=== PATIENT | female | born 1960 | race Caucasian/White ===

== ENCOUNTER 2017-06-22 02:54 | Inpatient (IN) | payer SELFPAY ==
[2017-06-22] MEDS ORDERED: Nitroglycerin 2% Ointment 1 INCH/1 GM Packet ONE (03:22)
[2017-06-22 03:38] LABS: #Eosinphils 0.1 thou/uL (0.0-0.7); #Lymphocytes 2.9 thou/uL (1.20-3.40); #Monocytes 0.9 thou/uL (0.11-0.59); #Neutrophils 6.1 thou/uL (1.40-6.50); %Basophils 0.4 % (0.0-1.0); %Eosinophils 0.7 % (0.0-10.0); %Lymphocytes 28.6 % (21.0-51.0); %Monocytes 9.1 % (0.0-10.0); Hematocrit 47.6 % (36.0-47.0); Mean Platelet Volume 7.3 fL (7.4-10.4); Red Blood Cell (RBC) Count 4.82 mill/uL (4.20-5.40)
[2017-06-22 03:45] LABS: Prothrombin Time 12.3 SEC (12.0-14.7)
[2017-06-22 04:01] LABS: Troponin I Less than 0.010 ng/mL (< 0.028)
[2017-06-22 04:06] LABS: ALT (SGPT) 47 U/L (8-55); AST (SGOT) 42 U/L (5-34); Alkaline Phosphatase 203 U/L (40-150); Anion Gap 21 mmol/L (10-20); BUN (Urea Nitrogen) 19 mg/dL (9.8-20.1); Bilirubin, Total 1.1 mg/dL (0.2-1.2); Calc. Creatinine Clearance 0 mL/min (70-130); Calcium 10.9 mg/dL (7.8-10.44); Carbon Dioxide 22 mmol/L (22-29); Chloride 100 mmol/L (98-107); Estimated GFR-MDRD 73; Globulin 4.4 g/dL (2.4-3.5); Magnesium 2.4 mg/dL (1.6-2.6); Protein, Total 9.1 g/dL (6.0-8.3)
[2017-06-22] MEDS ORDERED: Ondansetron HCl/PF 4 MG/2 ML Vial ONE (04:52)
[2017-06-22] MEDS ORDERED: Heparin 10,000 UNITS/ 10 ML VIAL SLOW IVP SCH ×2 (05:00→05:30)
[2017-06-22] MEDS ORDERED: Heparin 25,000 units/D5W 500 ML IV SCH (05:00)
[2017-06-22] MEDS ORDERED: Nitroglycerin 0.4 MG TAB (25 Tab Bottle) SL PRN (05:26)
[2017-06-22] MEDS ORDERED: Acetaminophen 650 MG Suppository PR PRN (05:26)
[2017-06-22] MEDS ORDERED: Bisacodyl 5 MG TAB PO PRN (05:26)
[2017-06-22] MEDS ORDERED: Acetaminophen 325 MG TAB PO PRN (05:26)
[2017-06-22] MEDS ORDERED: Morphine 4 MG/ML VIAL SLOW IVP PRN (05:26)
[2017-06-22] MEDS ORDERED: Ondansetron HCl/PF 4 MG/2 ML Vial IVP PRN (05:26)
[2017-06-22] MEDS ORDERED: Heparin 25,000 units/D5W 500 ML IVPB SCH (05:30)
[2017-06-22] MEDS ORDERED: hydrALAZINE 20 MG/ML VIAL SLOW IVP PRN (05:33)
--- NOTE | 2017-06-22 06:31 | HP ---
PRIMARY CARE PHYSICIAN: None. CHIEF COMPLAINT: Chest pain. HISTORY OF PRESENT ILLNESS: Ms. Eric is a pleasant 57-year-old lady who was seen at [facility] on 06/22/2017. She was hospitalized here in 11/2013 for chest pain. At that time, she had a normal nuclear stress test. She reports that over the last week, she has had decreased exercise tolerance, feeling short of breat h with activities that do not usually make her feel short of breath. One week ago, she also reports having some chest pain and she took Tylenol for that. Yesterday morning, she started having nausea and vomiting, and diarrhea. She reports vomiting multip le times. She also reports having multiple nonbloody loose stools. Vomiting and diarrhea resolved a s of yesterday evening. She continues to be nauseous. She also developed chest pain yesterday. She describes it as pain across her chest, tightness like s ensation, 6/10 at its worst, radiating to her jaw, accompanied by nausea, vomiting, and diarrhea. Sh e denies any fevers. She reports abdominal cramps. REVIEW OF SYSTEMS: The following complete review of systems was negative, unless otherwise mentioned in the HPI or below : Constitutional: Weight loss or gain, sense of well-being, ability to conduct usual activities, exerc ise tolerance. Skin/Breast: Rash, itching, changes in hair growth or loss, nail changes, breast lumps, tenderness, swelling, nipple discharge. Eyes: Vision, double vision, tearing, blind spots, pain. ENT/Mouth: Headaches (location, time of onset, duration, precipitating factors), vertigo, lightheade dness, injury. Vision, double vision, tearing, blind spots, pain, nose bleeding, colds, obstruction, discharge, dental difficulties, gingival bleeding, dentures, neck stiffness, pain, tenderness, klaudia s in thyroid or other areas. Cardiovascular: Precordial pain, substernal distress, palpitations, syncope, dyspnea on exertion, or thopnea, nocturnal paroxysmal dyspnea, edema, cyanosis, hypertension, heart murmurs, varicosities, ph lebitis, claudication. Respiratory: Pain, shortness of breath, wheezing, stridor, cough, hemoptysis, fever or night sweats. Gastrointestinal: Poor appetite, dysphagia, indigestion, abdominal pain, heartburn, eructation, naus ea, vomiting, hematemesis, jaundice, constipation, or diarrhea, abnormal stools (santiago-colored, tarry, bloody, greasy, foul smelling), flatulence, hemorrhoids, recent changes in bowel habits. Genitourinary: Urgency, frequency, dysuria, nocturia, hematuria, polyuria, oliguria, unusual (or tank nge in) color of urine, stones, hesitancy, change in size of stream, dribbling, acute retention or in continence, libido, potency. Musculoskeletal: Pain, swelling, redness or heat of muscles or joints, limitation, of motion, muscul ar weakness, atrophy, cramps. Neurologic/Psychiatric: Convulsions, paralyses, tremor, incoordination, parasthesias, difficulties w ith memory of speech, sensory or motor disturbances, or muscular coordination (ataxia, tremor), emoti onal problems, anxiety, depression, previous psychiatric care, unusual perceptions, hallucinations. Allergy/Immunologic: Skin rash, anemia, bleeding tendency, polydipsia, polyuria, intolerance to heat or cold. PAST MEDICAL HISTORY: Significant for chronic back pain, nephrolithiasis, right leg deep vein thromb osis. She also reports that she was recently diagnosed with hypertension and was started on an antih ypertensive medication. PAST SURGICAL HISTORY: Significant for cholecystectomy, tubal ligation, and back surgery x2. PSYCHIATRIC HISTORY: Significant for depression. SOCIAL HISTORY: The patient reports that she used to smoke 1 pack of cigarettes a day, but she has n ow decreased to half a pack of cigarettes a day. She reports rare alcohol use. She reports occasion al marijuana use. She denies any cocaine use. FAMILY HISTORY: Significant for myocardial infarction and other heart diseases in several family mem bers. ALLERGIES: No known drug allergies. CURRENT MEDICATIONS: She appears to be taking clonidine 0.1 mg 2 times a day. This needs to be clar ified. PHYSICAL EXAMINATION: GENERAL: Ms. Eric is awake and alert, not in acute distress. VITAL SIGNS: Blood pressure is 141/84. Pulse is 102. She is breathing at rate of 20 and saturating 97% on room air. She is afebrile. EYES: No scleral icterus. No conjunctival pallor. ENT: Dry mucosal membranes, no oropharyngeal erythema or exudates. NECK: Supple, nontender, normal range of movement. Trachea is midline. RESPIRATORY: Accessory muscles of breathing are not active. Chest wall movements are symmetric bila terally. LUNGS: Clear to auscultation without wheeze, rhonchi, or crepitations. ABDOMEN: Soft, nontender, bowel sounds heard, no hepatomegaly, no splenomegaly. CARDIOVASCULAR: S1 and S2 are heard, tachycardic and regular. EXTREMITIES: Peripheral pulses palpable. No carotid bruit, no pericardial rub. MUSCULOSKELETAL: Power is 5/5 in all 4 extremities. Normal range of movement at all major extremity joints. NEUROLOGIC: Cranial nerves II-XII are intact, deep tendon reflexes 2+. SKIN: No rashes or subcutaneous nodules. LYMPHATIC: No cervical lymphadenopathy. PSYCHIATRIC: Normal mood, normal affect, patient is oriented to person, place, and time. DATABASE: Ms. Eric's labs and investigations were reviewed. I reviewed her electrocardiogram, which shows sinus tachycardia, ST depressions in inferior and anterior lateral leads. I also reviewed her chest x-ray, which does not show any pulmonary infiltrates. Laboratory investigations show normal w maribell count, elevated hemoglobin of 16.1, normal platelet count, normal sodium, normal potassium, norm al creatinine, elevated calcium level of 10.9, normal magnesium, elevated AST of 42, elevated alkalin e phosphatase of 203, normal troponin I and normal TSH. ASSESSMENT AND PLAN: Ms. Eric is a pleasant 57-year-old lady who was seen at [facility] on 06/21/2017. Her problem list includes: 1. Chest pain: Her presentation is concerning for unstable angina. However, given her history of d eep vein thrombosis as well as her current presentation with sinus tachycardia, we will check D-dimer to rule out pulmonary embolism. 2. Unstable angina: Patient will be admitted to the hospital for telemetry monitoring. Her case wolf s been discussed by the emergency room physician with the industrial hire sales assistant wallpaper consultant. Patient has been sta rted on heparin drip, which I will continue. The patient will also be continued on aspirin. We will await Cardiology service opinion and recommendations. 3. Nausea, vomiting, and diarrhea. Vomiting and diarrhea appear to have resolved. We will start he r on p.r.n. Zofran. She is clinically dehydrated, will provide intravenous hydration. 4. Hypertension: We will resume home antihypertensives once clarified. For now, we will monitor vi loyda signs. We will start her on p.r.n. IV hydralazine. 5. Tobacco abuse: Patient has been counseled regarding tobacco cessation. We will start her on srinivas otine replacement therapy. 6. Abnormal liver function tests: Right upper quadrant is nontender. We will recheck her liver pro file. 7. Hypercalcemia: Mild, will recheck to rule out lab error. LEVEL OF RISK: High. LEVEL OF COMPLEXITY: High.
[2017-06-22 06:58] LABS: Hematocrit 39.5 % (36.0-47.0)
[2017-06-22 07:12] LABS: Troponin I Less than 0.010 ng/mL (< 0.028)
[2017-06-22] MEDS: Sodium Chloride 0.9% 1,000 ML IV SCH ×3 (08:09→21:19)
[2017-06-22] MEDS: Nicotine 14 MG PATCH TD SCH (08:19)
--- NOTE | 2017-06-22 09:09 | RAD ---
PORTABLE AP CHEST XRAY: DATE: 06/22/17. History Chest pain with nausea, vomiting, and diarrhea. COMPARISON: 12/21/13. FINDINGS: Cardiac silhouette and pulmonary vasculature are within normal limits. The lungs remain clear. Dege nerative changes are present in the spine. There are vascular calcifications present in the thoracic aorta. There has been no interval change from the prior study. IMPRESSION: No acute cardiopulmonary process. POS: [facility]
--- NOTE | 2017-06-22 09:29 | PDOC.PN ---
- Subjective Encounter Start Date: 06/22/17 Encounter Start Time: 09:27 Ms. Eric was seen in follow-up of chest pain. She says she feels better today. She still has some soreness in her chest, but it primarily when she goes to sit up, or when she coughs deep. She admits to having some dyspnea on exertion in the past few weeks. - Objective MAR Reviewed: Yes Vital Signs & Weight: Vital Signs (12 hours) Temp Pulse Resp BP Pulse Ox 06/22/17 07:40 99.1 F 106 H 18 130/90 100 Result Diagrams: 06/22/17 06:40 06/22/17 03:25 Phys Exam - Physical Examination HEENT: PERRLA Respiratory: no wheezing, no rales, no rhonchi, clear to auscultation bilateral Cardiovascular: RRR, no significant murmur Gastrointestinal: soft, non-tender, positive bowel sounds Musculoskeletal: no edema Dx/Plan (1) Chest pain Code(s): R07.9 - CHEST PAIN, UNSPECIFIED Status: Acute (2) Hypertension Code(s): I10 - ESSENTIAL (PRIMARY) HYPERTENSION Status: Acute (3) Tobacco abuse Code(s): Z72.0 - TOBACCO USE Status: Acute - Plan * Chest pain- patient's D-Dimer was elevated, and her symptoms were atypical for angina- discussed with Dr. Cadena- will proceed with CTA of chest prior to any other work-up * HTN - blood pressure is stable .
[2017-06-22 10:16] LABS: Troponin I Less than 0.010 ng/mL (< 0.028)
--- NOTE | 2017-06-22 13:29 | CT ---
CT ANGIOGRAM THORAX WITH IV CONTRAST AND 3D RECONSTRUCTIONS: DATE: 06/22/17. HISTORY: Chest pain and dyspnea. FINDINGS: There are no filling defects seen in the pulmonary arteries to suggest a pulmonary embolus. The thor acic aorta is normal in caliber without evidence of an aortic dissection. Mild vascular calcificatio ns are seen in the thoracic aorta as well as involving the coronary arteries. Mild emphysematous changes are seen in the upper lobes. The lungs are otherwise clear. There is a mildly prominent soft tissue density in the right infrahilar region which may represent mi ldly prominent lymph node. This measures 10 mm in short axis dimension. Postcholecystectomy changes are noted. There are degenerative changes in the spine. IMPRESSION: No CT evidence of a pulmonary embolus. POS: [facility]
[2017-06-22] MEDS: Aspirin 325 mg Enteric Coated Tablet PO SCH (13:45)
[2017-06-22] MEDS ORDERED: ISOVUE-370 76%-LOCM 1 ML ONE (17:09)
--- NOTE | 2017-06-22 18:12 | CON ---
DATE OF CONSULTATION: 06/22/2017 REASON FOR CONSULTATION: Chest pain. HISTORY OF PRESENT ILLNESS: Mrs. Eric is a very pleasant 57-year-old white female who comes to the [facility] for nausea, vomiting, and diarrhea. She has been having severe nausea, lots of vomiting for the last 2 days as well as diarrhea. It all started the night on Thanksgiving after she had her meal . She says she has been unable to keep anything down. When she came in, she was asked if she had ch est pain, she has noticed a little pain on the right side of her chest. She feels that it is a muscl e she pulled as she was dry heaving so much all day long. An EKG was done and it looked like she baljinder ht have ischemia, so she was admitted with diagnosis of unstable angina. Her symptoms do not sound c ardiac at all. She states that she is hungry now. She has not had any more nausea since being given some nausea medicine and she would like to see if she can eat. CT of the chest showed coronary calc ification, she probably does have some level of coronary disease, but currently she is denying any sy mptoms that would concern me for angina. PAST MEDICAL HISTORY: 1. Chronic low back pain. 2. Nephrolithiasis. 3. Right deep vein thrombosis. 4. Hypertension. PAST SURGICAL HISTORY: 1. Cholecystectomy. 2. Tubal ligation. 3. Back surgery twice. SOCIAL HISTORY: Smokes a pack a day, but has decreased to half pack a day in the last few months. R are alcohol use. Occasional marijuana use. No cocaine. FAMILY HISTORY: DC and heart disease in several family members. OUTPATIENT MEDICATIONS: Include: 1. Clonidine 0.1 mg twice a day. 2. Tramadol 40 mg q.4 hours. p.r.n. pain. 3. Aspirin in the form of BC powder 1 packet daily. ALLERGIES: No known drug allergies. REVIEW OF SYSTEMS: Twelve point review of system was done, it was all negative unless stated in the history of present illness. PHYSICAL EXAMINATION: VITAL SIGNS: Temperature 98.9, pulse 90, respiratory rate 17, satting 98% on room air, blood pressur e 125/70. GENERAL: Awake, alert and oriented x3, in no distress. HEENT: Normocephalic, atraumatic. NECK: Supple. LUNGS: Clear. CARDIOVASCULAR: S1, S2, no S3, S4, no murmurs or rubs. ABDOMEN: Soft, positive bowel sounds. EXTREMITIES: No edema. SKIN: Warm and dry. LABORATORY WORK: Reviewed. White count of 10, hemoglobin of 16 down to 13 after IV fluids, hematocr it 47, platelet count 361. Coags were reviewed. Chemistries were reviewed. Normal BUN and creatini ne, normal electrolytes, glucose of 107, calcium 10.9, AST 42, alkaline phosphatase was 203, troponin is undetectable x3 with a normal CK-MB. TSH was normal. Albumin was 4.7. EKG was reviewed, diffuse ST depressions while she is tachycardic. Chest x-ray was unremarkable. CT of the chest showed coronary atherosclerosis with mild vascular calcifications in thoracic aorta a s well. Emphysematous changes in the upper lobes, clear lungs otherwise, no pulmonary embolus. ASSESSMENT AND PLAN: 1. Acute gastroenteritis. 2. Chest pain, most likely musculoskeletal from her dry heaving and nausea and vomiting for the last 2 days. 3. Abnormal EKG: Concerning for ischemia. Given her changes on EKG in the setting of stress, we wi ll get a stress test to make sure this is not an issue with her heart. Thank you for letting us participate in the care of your patient. We will follow.
[2017-06-22] MEDS ORDERED: FLU VACC QS2017-18 36 mo. & older 0.5 ML SYRINGE IM ONE (21:00)
[2017-06-23] MEDS: Nicotine 14 MG PATCH TD SCH ×3 (05:52→12:37)
[2017-06-23 06:04] LABS: #Basophils 0.1 thou/uL (0.0-0.2); #Eosinphils 0.1 thou/uL (0.0-0.7); #Lymphocytes 1.7 thou/uL (1.20-3.40); #Monocytes 0.5 thou/uL (0.11-0.59); #Neutrophils 2.8 thou/uL (1.40-6.50); %Basophils 1.1 % (0.0-1.0); %Lymphocytes 32.9 % (21.0-51.0); %Monocytes 9.7 % (0.0-10.0); Hematocrit 34.8 % (36.0-47.0); Red Blood Cell (RBC) Count 3.53 mill/uL (4.20-5.40); White Blood Cell (WBC) Count 5.1 thou/uL (4.8-10.8)
[2017-06-23] MEDS: Sodium Chloride 0.9% 1,000 ML IV SCH (06:21)
[2017-06-23 06:32] LABS: ALT (SGPT) 31 U/L (8-55); AST (SGOT) 26 U/L (5-34); Alkaline Phosphatase 122 U/L (40-150); Bilirubin, Direct 0.3 mg/dL (0.1-0.3); Bilirubin, Total 0.7 mg/dL (0.2-1.2); Protein, Total 5.7 g/dL (6.0-8.3)
[2017-06-23 06:33] LABS: Anion Gap 9 mmol/L (10-20); BUN (Urea Nitrogen) 12 mg/dL (9.8-20.1); Calc. Creatinine Clearance 0 mL/min (70-130); Calcium 8.6 mg/dL (7.8-10.44); Carbon Dioxide 28 mmol/L (22-29); Chloride 106 mmol/L (98-107); Cholesterol 133 mg/dl (< 200 Desired); Estimated GFR-MDRD Greater than 90; LDL Cholesterol, Calculated 81 mg/dL
[2017-06-23] MEDS ORDERED: Potassium Chloride 20 MEQ TAB PO SCH ×4 (07:00→17:00)
[2017-06-23] MEDS ORDERED: NS 0.9% w/ 20 MEQ KCL 1,000 ML IV SCH (07:00)
[2017-06-23] MEDS: Aspirin 325 mg Enteric Coated Tablet PO SCH (12:35)
[2017-06-23 13:08] VITALS: BP 172/81; TEMP 98
--- NOTE | 2017-06-23 14:02 | NM ---
NUCLEAR MEDICINE MYOCARDIAL PERFUSION SCAN: DATE: 06/23/17. COMPARISON: 12/22/13. HISTORY: Chest pain. TECHNIQUE: SPECT imaging of the left ventricular myocardium obtained during rest and stress following the intrav enous administration of 28.5 and 10.3 mCi technetium 99m labeled sestamibi. FINDINGS: No fixed or reversible defect is noted. Left ventricular wall motion appears normal. TID is 1.17. EDV is 111 mL and ESV is 46 mL with a left ventricular ejection fraction of 59%. IMPRESSION: 1. No fixed or reversible defect. 2. Left ventricular wall motion appears normal. 3. Left ventricular ejection fraction 59%. POS: [facility]
[2017-06-23] MEDS ORDERED: Regadenoson 0.4 MG/5 ML SYRINGE ONE (14:42)
--- NOTE | 2017-06-23 15:30 | PDOC.CTH ---
Cardiology Progress Note - Subjective She is doing well. No more diarrhea or vomiting. No nausea. Her stress test is negative and echo unremarkable. No chest pain, tightness, pressure, SOB. - Objective Vital Signs Temp Pulse Resp BP Pulse Ox 06/23/17 12:00 98 F 76 16 172/81 H 97 06/23/17 07:41 97.2 F L 71 19 99 06/23/17 07:40 97.2 F L 71 19 137/71 99 06/23/17 04:00 97.9 F 70 22 H 154/72 H 98 Weight 5.333 oz 06/22/17 06/23/17 06/24/17 06:59 06:59 06:59 Intake Total 3358 240 Output Total 700 Balance 2658 240 - Physical Examination General/Neuro: alert & oriented x3, NAD Neck: no JVD present Lungs: CTA, unlabored respirations Heart: RRR Abdomen: NT/ND Extremities: other: (no edema.) - Telemetry Telemetry Rhythm: NSR - Labs Result Diagrams: 06/23/17 05:14 06/23/17 14:55 Troponin/CKMB CK-MB (CK-2) 1.3 ng/mL (0-6.6) 06/22/17 03:25 Troponin I Less than 0.010 ng/mL (< 0.028) 06/22/17 09:31 - Assessment/Plan 1. Acute gastroenteritis, resolved. 2. Chest martinez, right sided, atypical normal stress test. 3. Tobacco abuse, counselled on cessation. PLAN: - May d/c home from [facility].
--- NOTE | 2017-06-23 16:21 | DIS ---
DATE OF ADMISSION: 06/22/2017 DATE OF DISCHARGE: 06/23/2017 DISCHARGE DISPOSITION: Home. FOLLOW-UP: 1. Follow up with primary care physician, Dr. Boyle in [place] in 1 week. 2. Base met in 2 days is recommended. Primary care physician to follow. ALLERGIES: No known drug allergies. DISCHARGE MEDICATIONS: Tramadol as needed, potassium chloride 20 mEq twice a day. INPATIENT CONSULTANTS: Cardiology, Dr. Cadena. BRIEF HOSPITAL COURSE: Patient is a 57-year-old female with ongoing tobacco abuse, chronic low back pain and hypertension, currently on no medications, presented to the emergency room with chest discom fort. Please refer to the history and physical dated 06/22/2017 for further details. The patient was admitted to the hospital with a diagnosis of chest discomfort, rule out acute coronar y syndrome. Troponins were normal. Due to elevated D-dimer at 3.3, she underwent a CT angiogram of the chest that was negative for pulmonary embolism. Echocardiogram showed left ventricular ejection fraction of 55%-60% with grade 1/3 diastolic dysfunction. She underwent a Cardiolite stress test per Cardiology recommendation that was negative for reversible ischemia. Ejection fraction was 59%. Filemon prasad recently had acute gastroenteritis that has more or less resolved. Her stool is well formed now. Her potassium earlier today was 2.9. It was 4.1 yesterday. She received potassium chloride this mor josefina. Repeat potassium is 3.3. She requested to get discharged. She agrees to follow with the [facility] with repeat potassium in 2 days. Lifestyle modification including tobacco cessation was ext ensively emphasized. FINAL DIAGNOSES: 1. Chest discomfort, acute coronary syndrome ruled out. 2. Negative Cardiolite stress test. 3. Acute gastroenteritis, more or less resolved. 4. Hypokalemia with potassium 2.9, replaced. 5. Hypertension. Her blood pressure on the day of discharge is 137/71. She was advised to monitor her blood pressure on a daily basis. 6. Ongoing tobacco abuse. The patient was counseled extensively. 7. Chronic low back pain. 8. Mild hypoalbuminemia. 9. Dehydration on admission secondary to acute gastroenteritis. Plan of care was discussed with the patient in detail. She stated understanding. Total time coordinating the discharge of this patient including counseling was 37 minutes.
--- NOTE | 2017-06-24 04:30 | STRESS ---
Acquisition Time: 2017-06-23 09:31:10 Total Exercise Time: 00:01:00 Test Indications: CHEST PAIN Medications: Protocol: LEXISCAN Max HR: 129 BPM 79% of Pred: 162 BPM Max BP: 190/098 mmHG Max Work Load: 1.0 METS RESTING ECG: NORMAL SINUS RHYTHM AT 75 BPM WITH NON-SPECIFIC ST SEGMENT CHANGES SYMPTOMS: NONE NORMAL BP RESPONSE ECTOPY: RARE PAC AND PVC ECG STRESS: 0.5-1.[address] DEPRESSION INTERPRETATION: INDETERMINATE ECG/AWAIT NUCLEAR IMAGES FOR DEFINITIVE DIAGNOSIS Confirmed by MARCELLE SULLIVAN M.D. ([id number]) on 06/24/2017 4:29:40 AM Referred By: MD Clotilde SULLIVAN Confirmed By:MARCELLE SULLIVAN M.D.
== END 2017-06-23 17:12 | disposition home or self-care (01) | DRG 313 ==
LOC: ERS 02:54 → 2NO 04:47
PROVIDERS: ADMIT Internal Medicine; ATTEND Internal Medicine
DX: R07.89 Other chest pain (principal); I25.10 Atherosclerotic heart disease of native coronary artery without angina pectoris; E88.09 Other disorders of plasma-protein metabolism, not elsewhere classified; I10 Essential (primary) hypertension; F17.210 Nicotine dependence, cigarettes, uncomplicated; K52.9 Noninfective gastroenteritis and colitis, unspecified; M54.5 Low back pain; R79.1 Abnormal coagulation profile; E87.6 Hypokalemia; E86.0 Dehydration; R68.84 Jaw pain; F32.9 Major depressive disorder, single episode, unspecified; Z86.718 Personal history of other venous thrombosis and embolism; Z23 Encounter for immunization
CPT/HCPCS: 36415; 71010; 71275; 78452; 80048; 80053; 80061; 80076; 82553; 83735; 84443; 84484; 85025; 85379; 85610; 85730; 90471; 90682; 90732; 93005; 93010; 93017; 93306; 96365; 96375; 99406; A4216; A9500; G0008; G0009; J1644; J2270; J2405; J2785; Q2036

== ENCOUNTER 2017-12-25 23:10 | Observation (INO) | payer SELFPAY ==
--- NOTE | 2017-12-25 23:45 | RAD ---
SINGLE VIEW OF THE CHEST: 12/25/17 COMPARISON: 06/22/17 HISTORY: Chest tightness since yesterday and facial tingling. FINDINGS: Single view of the chest shows a normal sized cardiomediastinal silhouette. There is no evidence of c onsolidation, mass, or pleural effusion. Degenerative changes are seen in the spine. IMPRESSION: No evidence of acute cardiopulmonary disease. POS: [facility]
[2017-12-26 00:08] LABS: #Eosinphils 0.2 thou/uL (0.0-0.7); #Lymphocytes 2.5 thou/uL (1.20-3.40); #Monocytes 0.7 thou/uL (0.11-0.59); #Neutrophils 3.7 thou/uL (1.40-6.50); %Basophils 0.6 % (0.0-1.0); %Eosinophils 2.2 % (0.0-10.0); %Lymphocytes 34.9 % (21.0-51.0); %Monocytes 9.8 % (0.0-10.0); %Neutrophils 52.6 % (42.0-75.0); Hemoglobin 12.6 g/dL (12.0-16.0); Mean Corpuscular HGB CONC 33.8 g/dL (32.0-36.0); Mean Corpuscular Hemoglobin 33.1 pg (27.0-31.0); Mean Corpuscular Volume 98.2 fl (81.0-99.0); Mean Platelet Volume 6.7 fL (7.4-10.4); Platelet Count 296 thou/uL (130-400); RBC Distribution Width 12.1 % (11.5-14.5); White Blood Cell (WBC) Count 7.1 thou/uL (4.8-10.8)
[2017-12-26 00:38] LABS: ALT (SGPT) 20 U/L (8-55); AST (SGOT) 21 U/L (5-34); Albumin 3.9 g/dL (3.5-5.0); Alkaline Phosphatase 107 U/L (40-150); Anion Gap 11 mmol/L (10-20); BUN (Urea Nitrogen) 23 mg/dL (9.8-20.1); Bilirubin, Total 0.3 mg/dL (0.2-1.2); CK (CPK) 61 U/L (29-168); Calc. Creatinine Clearance 0 mL/min (70-130); Calcium 9.6 mg/dL (7.8-10.44); Carbon Dioxide 32 mmol/L (22-29); Chloride 105 mmol/L (98-107); Estimated GFR-MDRD 81; Globulin 2.8 g/dL (2.4-3.5); Glucose 94 mg/dL (70-105); Protein, Total 6.7 g/dL (6.0-8.3); Sodium 145 mmol/L (136-145)
[2017-12-26 00:40] LABS: CKMB 0.6 ng/mL (0-6.6); Troponin I Less than 0.010 ng/mL (< 0.028)
[2017-12-26] MEDS ORDERED: Nitroglycerin 0.4 MG TAB (25 Tab Bottle) ONE (00:41)
[2017-12-26] MEDS ORDERED: Acetaminophen 500 MG TAB ONE (01:09)
[2017-12-26] MEDS ORDERED: Potassium Chloride 20 MEQ TAB ONE (03:01)
[2017-12-26 03:08] LABS: Amphetamine Not Detected (NotDetected); Barbiturates Screen Not Detected (NotDetected); Benzodiazepine Screen Detected (NotDetected); Cocaine Metabolite Screen Not Detected (NotDetected); Medtox Control Line Valid? VALID (VALID); Medtox Reader # READER 1; Methadone Not Detected (NotDetected); Methamphetamine Not Detected (NotDetected); Opiate Screen Not Detected (NotDetected); Oxycodone Screen Not Detected (NotDetected); Phencyclidine (PCP) Not Detected (NotDetected); THC/Cannabinoid Screen Detected (NotDetected); Tricyclic Screen Not Detected (NotDetected)
[2017-12-26 03:27] LABS: Troponin I Less than 0.010 ng/mL (< 0.028)
[2017-12-26] MEDS ORDERED: Acetaminophen 325 MG TAB PO PRN (04:10)
[2017-12-26] MEDS ORDERED: Acetaminophen 650 MG Suppository PR PRN (04:10)
[2017-12-26] MEDS ORDERED: Bisacodyl 5 MG TAB PO PRN (04:10)
[2017-12-26] MEDS ORDERED: Nitroglycerin 0.4 MG TAB (25 Tab Bottle) PO PRN (04:10)
--- NOTE | 2017-12-26 05:23 | HP ---
PRIMARY CARE PROVIDER: Jabier Gonzalez. CHIEF COMPLAINT: Chest pain. HISTORY OF PRESENT ILLNESS: Ms. Eric is a pleasant 57-year-old lady who was seen at [facility] on 12/26/2017. She was hospitalized at this facility in 05/2017 for chest pain. She had a normal stress test during that hospitalization. She reports that 2 weeks ago she thought she had a kidney infection. She took some [id number] "kidney pills." Next day, she presented to the emergency room in [place] and was diagnosed with plecory isy. She was visiting [place] at that time. Since then, she reports having leg cramps, leg paresthes ias, whole body spasms, and insomnia. She reports poor appetite. Yesterday, she developed chest pre ssure. She describes it as retrosternal, radiating to the jaw, no known aggravating or relieving fac tors, on and off, accompanied by shortness of breath, but not by lightheadedness. She came to the em ergency room because of ongoing chest discomfort. By the time I saw her, she reported that the chest discomfort had resolved. REVIEW OF SYSTEMS: All other systems reviewed and found to be negative. PAST MEDICAL HISTORY: Chronic back pain, nephrolithiasis, right leg deep vein thrombosis, and hypert ension. PAST SURGICAL HISTORY: Cholecystectomy, tubal ligation, and back surgery x2. PSYCHIATRIC HISTORY: Depression. SOCIAL HISTORY: The patient reports smoking 1 pack of cigarettes a day. She denies alcohol use. Sh shanice reports occasional marijuana use. FAMILY HISTORY: Several family members with cardiac disease. ALLERGIES: No known drug allergies. CURRENT MEDICATIONS: Amlodipine 5 mg daily, fluoxetine 20 mg daily, lisinopril 20 mg 2 times a day, and aspirin 81 mg daily. PHYSICAL EXAMINATION: GENERAL: Ms. Eric is awake and alert, not in acute distress. VITAL SIGNS: Blood pressure is 124/75, pulse is 65, she is breathing at rate of 18, and saturating 9 8% on room air. She is afebrile. EYES: No scleral icterus. No conjunctival pallor. ENT: Moist mucosal membranes. No oropharyngeal erythema or exudates. NECK: Supple, nontender, normal range of movement. Trachea is midline. RESPIRATORY: Accessory muscles of breathing are not active. Chest wall movements are symmetric bila terally. LUNGS: Clear to auscultation without wheeze, rhonchi, or crepitations. CARDIOVASCULAR: S1 and S2 are heard, regular. Peripheral pulses palpable. No carotid bruit or david cardial rub. ABDOMEN: Soft, nontender, bowel sounds heard. No hepatomegaly, no splenomegaly. NEUROLOGIC: Cranial nerves II through XII intact. Deep tendon reflexes are 2+. MUSCULOSKELETAL: Power is 5/5 in all 4 extremities. SKIN: No rashes or subcutaneous nodules. LYMPHATIC: No cervical lymphadenopathy. PSYCHIATRIC: Normal mood, normal affect, patient is oriented to person, place, and time. DATABASE: Ms. Eric's labs and investigations were reviewed. I reviewed his electrocardiograms. Zuri ctrocardiogram done at 2315 hours on 12/25, showed a normal sinus rhythm with premature atrial comple xes, nonspecific ST abnormalities. A repeat electrocardiogram done on 12/26/2017 at 0155 hours, do n ot show any premature atrial complexes. The ST abnormalities also appears to have improved. She has normal white count, normal hemoglobin, normal platelet count, D-dimer less than 0.27, decreased pota ssium of 3.0, normal sodium, elevated blood urea nitrogen of 23, normal creatinine, normal liver prof ile, and troponin I that is negative x2. Urine toxicology screen is positive for benzodiazepines and cannabinoids. ASSESSMENT AND PLAN: Ms. Eric is a pleasant 57-year-old lady who was seen at [facility] on 12/26/2017. Her problem list includes: 1. Chest pain: Given her recent negative stress test in 05/2017, we will admit Ms. Eric for telemet ry monitoring and rechecking troponins. We will request Cardiology Service input for opinion and hel p with further management. 2. Hypokalemia: Replace potassium and recheck potassium level. 3. Tobacco abuse: Patient has been counseled regarding tobacco cessation. Start patient on nicotin e replacement therapy. 4. Hypertension: Monitor vital signs, titrate antihypertensives as needed. 5. Cannabinoid use: The patient has been counseled regarding cessation of cannabinoid substances. Many thanks for allowing me to participate in your patient's care. Please feel free to contact me wi th any questions or concerns. LEVEL OF RISK: High. LEVEL OF COMPLEXITY: High.
[2017-12-26] MEDS ORDERED: Nicotine 21 MG PATCH TD SCH (06:00)
[2017-12-26 06:13] LABS: Troponin I Less than 0.010 ng/mL (< 0.028)
[2017-12-26] MEDS ORDERED: Enoxaparin Sodium 40 MG/0.4 ML SYRINGE SC SCH (09:00)
--- NOTE | 2017-12-26 11:56 | CON ---
DATE OF CONSULTATION: 12/26/2017 HISTORY OF PRESENT ILLNESS: The patient is a 57-year-old woman who presents with recurrent chest discomfort. The patient has a history of atypical chest pain. She was seen in 05/2017 with chest pain. She underwent a Cardiolite stress that revealed no evidence of ischemia. The patient was in her usual state of health when 3 days ago she developed right-sided chest discomfort. This radiated to the middle of her chest. This was a continuous discomfort. She came to the emergency room when she felt some radiation into her jaw that lasted just a few seconds. This subsequently resolved. The patient states she continues to feel discomfort. The discomfort is worse with movement. The patient has multiple cardiac risk factors including tobacco abuse, hypertension , and a strong family history of coronary artery disease. PAST MEDICAL HISTORY: 1. Hypertension. 2. Depression. 3. History of deep venous thrombosis. PAST SURGICAL HISTORY: Cholecystectomy, tubal ligation, back surgery. SOCIAL HISTORY: Long history of tobacco abuse. FAMILY HISTORY: Very strong family history of heart disease. ALLERGIES: None. MEDICATIONS ON ADMISSION: Aspirin 81 daily, lisinopril 20 b.i.d., Prozac 20 q.a.m., amlodipine 5 daily. PHYSICAL EXAMINATION: GENERAL: Middle-aged woman in no acute distress. VITAL SIGNS: Blood pressure of 134/63. NECK: No jugular distention, no carotid bruits. LUNGS: Clear to auscultation. HEART: Regular rate and rhythm, normal S1, S2. ABDOMEN: Nondistended. EXTREMITIES: No edema. SKIN: Warm and dry. NEUROLOGIC: Nonfocal. VASCULAR: Radial pulses 2+. LABORATORY: Sodium 145, potassium 3.0, chloride 105, bicarbonate 32, BUN 23, creatinine is 0.74, troponin less than 0.01. White blood cell count 7.1, hemoglobin 12.6, hematocrit 37.3, platelets are 296. D-dimer was less than 0.27. EKG revealed normal sinus rhythm with a normal ECG. IMPRESSION: 1. Chest pain, atypical. 2. Hypertension. 3. Tobacco abuse. 4. Depression. 5. History of deep venous thrombosis. This patient presents with atypical chest pain. Her cardiac enzymes show no evidence of a myocardial infarction. EKG shows no acute abnormalities. The patient does have multiple risks for coronary artery disease. Would recommend the patient undergo exercise treadmill testing. The patient has been highly advised to discontinue smoking. She will continue taking aspirin. I would recommend she add lipid lowering medication. We will follow this patient with you through her hospitalization. EDELMIRA
[2017-12-26 11:57] VITALS: BP 137/69; TEMP 98
[2017-12-26] MEDS ORDERED: Potassium Chloride 20 MEQ TAB PO SCH (14:45)
--- NOTE | 2017-12-26 17:06 | NM ---
NUCLEAR MEDICINE CARDIAC STRESS TEST WITH EJECTION FRACTION: 12/26/17 HISTORY: Chest pain. COMPARISON: Nuclear medicine study from 2017. TECHNIQUE: Stress and rest performed with intravenous administration of 27 and 9 millicuries of technetium 99m S estamibi. Attenuation correction was not performed due to a hardware malfunction. No evidence of scar or ischemia. Normal wall motion. Calculated ejection fraction is 64%. IMPRESSION: Normal cardiac stress test and ejection fraction. POS: [facility]
[2017-12-26] MEDS ORDERED: Atorvastatin Calcium 10 MG TAB PO SCH (21:00)
--- NOTE | 2017-12-27 07:09 | DIS ---
DATE OF ADMISSION: 12/26/2017 DATE OF DISCHARGE: 12/26/2017 The patient was admitted at 04:08 and discharged at 17:48. DISCHARGE DIAGNOSES: 1. Noncardiac chest pain. 2. Normal myocardial perfusion scan and EKG. 3. Chronic back pain. 4. Nephrolithiasis. 5. Right leg deep venous thrombosis. 6. Essential hypertension. CONSULTATIONS: Cardiology, Dr. Devan Houston. PROCEDURES: Nuclear stress test that was negative for inducible reversible ischemia flow limitations . HISTORY AND PHYSICAL: Ms. Eric is a 57-year-old female with the above history who presented to the e mergency department on the date of admission on late 12/25/2017 with a chief complaint of chest disco mfort. She has been recently admitted in 05/2017 for the same and had a normal stress at that time. Two weeks prior to admission, she thought she had a kidney infection and took some [id number] " kidney pills," but the next day was feeling worse. She presented to the emergency department in [facility] and was diagnosed with pleurisy. Since then, she has been having leg cramps, leg paresthesias, wh ole body spasms, insomnia and poor appetite. She presented to the emergency department here for ches t discomfort. By the time of presentation, it had resolved. Workup in the emergency department showed a normal EKG with premature atrial complexes, with a repeat echocardiogram being normal. She had normal white count. A D-dimer was undetectable and potassium of 3.0, but otherwise normal labs. We were called for admission. HOSPITAL COURSE: The patient was seen and examined by Dr. Leon and placed in observation. Serial c ardiac biomarkers were obtained. A cardiology consultation was obtained. Stress test was now ordere d. She does had one 6 months prior. That morning, the patient was seen by Dr. Houston. He did order a treadmill stress test with a nucl ear perfusion scan. Further review of her chart showed that if the stress test was negative, she wou ld be okay to go home. She had a stress test in the morning with both resting and exercise portions extending to the early a fternoon. She was able to come back and eat lunch and was doing well. She had no further chest pain . Her scan returned negative and she was stable for discharge with outpatient followup. PHYSICAL EXAMINATION: The patient was seen and examined on the day of discharge. Discharge plan and disposition was discussed with the patient and her face to face at the bed side. DISCHARGE MEDICATIONS: Resume her home medications as below: 1. Amlodipine 5 mg daily. 2. Aspirin 81 mg daily, new prescription. 3. Lipitor 10 mg p.o. at bedtime, new prescription. 4. Prozac 20 mg p.o. daily. 5. Lisinopril 20 mg p.o. b.i.d. 6. Tramadol 50 mg p.o. q.4 hours p.r.n. FOLLOWUP APPOINTMENTS: 1. Primary care physician is out of town and within a week. 2. Dr. Houston in 2-3 weeks. DISCHARGE CONDITION: Stable. DISPOSITION: Being discharged home via private vehicle with family. DISCHARGE ACTIVITY: As tolerated. DISCHARGE DIET: Heart healthy recommended.
[2017-12-27] MEDS ORDERED: Aspirin 81 mg Enteric Coated Tablet PO SCH (09:00)
== END 2017-12-26 17:53 | disposition home or self-care (01) ==
LOC: ERS 23:10 → 2SW 12-26 04:31
PROVIDERS: ADMIT Internal Medicine; ATTEND Internal Medicine
DX: R07.89 Other chest pain (principal); G89.29 Other chronic pain; M54.9 Dorsalgia, unspecified; I10 Essential (primary) hypertension; F17.210 Nicotine dependence, cigarettes, uncomplicated; E87.6 Hypokalemia; F12.10 Cannabis abuse, uncomplicated; F32.9 Major depressive disorder, single episode, unspecified; N20.0 Calculus of kidney; Z86.718 Personal history of other venous thrombosis and embolism; Z79.82 Long term (current) use of aspirin; Z79.899 Other long term (current) drug therapy
CPT/HCPCS: 36415; 71045; 78452; 80053; 80306; 82550; 82553; 84484; 85025; 85379; 93005; 93017; 96360; A9500; G0378; J1650

== ENCOUNTER 2018-03-29 07:35 | Emergency (ER) | payer SELFPAY ==
[2018-03-29] MEDS ORDERED: Albuterol Sulfate 2.5 mg/0.5 ml Neb ONE (08:20)
[2018-03-29] MEDS ORDERED: Albuterol Sulfate 2.5 mg/3 ml Neb ONE (08:20)
[2018-03-29 08:49] LABS: #Basophils 0.1 thou/uL (0.0-0.2); #Eosinphils 0.2 thou/uL (0.0-0.7); #Lymphocytes 1.9 thou/uL (1.20-3.40); #Monocytes 0.5 thou/uL (0.11-0.59); #Neutrophils 2.7 thou/uL (1.40-6.50); %Basophils 0.9 % (0.0-1.0); %Eosinophils 3.4 % (0.0-10.0); %Neutrophils 49.8 % (42.0-75.0); ALT (SGPT) 12 U/L (8-55); AST (SGOT) 18 U/L (5-34); Albumin 3.4 g/dL (3.5-5.0); Alkaline Phosphatase 95 U/L (40-150); Anion Gap 10 mmol/L (10-20); BUN (Urea Nitrogen) 15 mg/dL (9.8-20.1); Bilirubin, Total 0.3 mg/dL (0.2-1.2); CK (CPK) 54 U/L (29-168); Calc. Creatinine Clearance 0 mL/min (70-130); Calcium 8.8 mg/dL (7.8-10.44); Carbon Dioxide 25 mmol/L (22-29); Chloride 109 mmol/L (98-107); Estimated GFR-MDRD 86; Globulin 2.6 g/dL (2.4-3.5); Glucose 92 mg/dL (70-105); Hemoglobin 11.9 g/dL (12.0-16.0); Mean Corpuscular HGB CONC 33.8 g/dL (32.0-36.0); Mean Corpuscular Hemoglobin 33.5 pg (27.0-31.0); Mean Corpuscular Volume 98.9 fL (78.0-98.0); Mean Platelet Volume 6.9 fL (7.4-10.4); Platelet Count 265 thou/uL (130-400); Potassium 3.6 mmol/L (3.5-5.1); RBC Distribution Width 12.1 % (11.5-14.5); Red Blood Cell (RBC) Count 3.56 mill/uL (4.20-5.40); Sodium 140 mmol/L (136-145); White Blood Cell (WBC) Count 5.4 thou/uL (4.8-10.8)
[2018-03-29 08:53] LABS: CKMB 1.1 ng/mL (0-6.6); Troponin I Less than 0.010 ng/mL (< 0.028)
[2018-03-29] MEDS ORDERED: Azithromycin 250 MG TAB ONE (09:03)
[2018-03-29] MEDS ORDERED: predniSONE 20 MG TAB ONE (09:03)
[2018-03-29] MEDS ORDERED: Ketorolac Tromethamine 30 MG/ML VIAL ONE (09:09)
--- NOTE | 2018-03-29 09:25 | RAD ---
CHEST PA AND LATERAL: Date: 03/29/18 INDICATION: Cough and congestion. Concern for pneumonia. IMPRESSION: No pneumonia demonstrated. COMMENTS: Heart size is normal. Vascular calcifications of the thoracic aorta have progressed from the comparis on dated 2010. No acute osseous abnormality is evident. There are cholecystectomy clips within the ri t upper quadrant. POS: [facility]
== END 2018-03-29 10:00 | disposition home or self-care (01) ==
LOC: ERS 07:35
DX: J40 Bronchitis, not specified as acute or chronic (principal); I10 Essential (primary) hypertension; F32.9 Major depressive disorder, single episode, unspecified; F17.210 Nicotine dependence, cigarettes, uncomplicated; Z79.899 Other long term (current) drug therapy; Z79.82 Long term (current) use of aspirin
CPT/HCPCS: 36415; 71046; 80053; 82550; 82553; 84484; 85025; 93005; 94640; 96372; J1885; J7506; J7611

== ENCOUNTER 2018-09-07 13:50 | Emergency (ER) | payer SELFPAY ==
[2018-09-07] MEDS ORDERED: Dexamethasone 10 MG/ML VIAL ONE (15:55)
[2018-09-07] MEDS ORDERED: Metoclopramide HCl 10 MG/2 ML VIAL ONE (15:55)
[2018-09-07] MEDS ORDERED: Ketorolac Tromethamine 30 MG/ML VIAL ONE (15:55)
[2018-09-07 16:02] LABS: #Basophils 0.1 thou/uL (0.0-0.2); #Eosinphils 0.2 thou/uL (0.0-0.7); #Lymphocytes 2.1 thou/uL (1.20-3.40); #Monocytes 0.7 thou/uL (0.11-0.59); #Neutrophils 3.7 thou/uL (1.40-6.50); %Basophils 1.4 % (0.0-1.0); %Eosinophils 2.9 % (0.0-10.0); %Lymphocytes 30.7 % (21.0-51.0); %Monocytes 10.5 % (0.0-10.0); %Neutrophils 54.5 % (42.0-75.0); Hemoglobin 14.1 g/dL (12.0-16.0); Mean Corpuscular HGB CONC 33.1 g/dL (32.0-36.0); Mean Corpuscular Hemoglobin 32.9 pg (27.0-31.0); Mean Corpuscular Volume 99.3 fL (78.0-98.0); Mean Platelet Volume 7.1 fL (7.4-10.4); Platelet Count 297 thou/uL (130-400); RBC Distribution Width 12.1 % (11.5-14.5); White Blood Cell (WBC) Count 6.8 thou/uL (4.8-10.8)
[2018-09-07 16:09] LABS: Bilirubin Negative (Negative); Blood, Urine Negative (Negative); Clarity CLEAR (Clear); Glucose, Urine (Dipstick) Negative (Negative); Leukocyte Negative (Negative); Nitrite Negative (Negative); Protein, Urine (Dipstick) Negative (Neg-Trace); Urobilinogen 0.2 mg/dL (0.2-1.0)
[2018-09-07 16:40] LABS: ALT (SGPT) 58 U/L (8-55); AST (SGOT) 55 U/L (5-34); Alkaline Phosphatase 128 U/L (40-150); Anion Gap 13 mmol/L (10-20); BUN (Urea Nitrogen) 17 mg/dL (9.8-20.1); Bilirubin, Total 0.2 mg/dL (0.2-1.2); Calc. Creatinine Clearance 0 mL/min (70-130); Carbon Dioxide 22 mmol/L (22-29); Chloride 108 mmol/L (98-107); Estimated GFR-MDRD 87; Globulin 3.3 g/dL (2.4-3.5); Glucose 88 mg/dL (70-105); Potassium 3.9 mmol/L (3.5-5.1); Protein, Total 7.3 g/dL (6.0-8.3); Sodium 139 mmol/L (136-145)
--- NOTE | 2018-09-07 17:42 | CT ---
CT BRAIN WITHOUT CONTRAST: History: Vomiting. Headache. Comparison: 2011 FINDINGS: No acute hemorrhage or infarct. No midline shift of mass effect. Ventricular size and extraaxial CSF spaces are normal. The calvarium is intact. Old left medial orbital wall fracture. Mastoids are clear. IMPRESSION: No acute intracranial abnormality. POS: [facility]
== END 2018-09-07 17:35 | disposition home or self-care (01) ==
LOC: ERS 13:50
DX: R51 Headache (principal); M54.9 Dorsalgia, unspecified; G89.29 Other chronic pain; I10 Essential (primary) hypertension; F32.9 Major depressive disorder, single episode, unspecified; F17.210 Nicotine dependence, cigarettes, uncomplicated; Z79.899 Other long term (current) drug therapy; Z79.82 Long term (current) use of aspirin
CPT/HCPCS: 36415; 70450; 80053; 81003; 85025; 96365; 96366; 96375; J1100; J1885; J2765

== ENCOUNTER 2018-10-22 19:08 | Emergency (ER) | payer SELFPAY ==
[2018-10-22] MEDS ORDERED: Ketorolac Tromethamine 30 MG/ML VIAL ONE (19:40)
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
== END 2018-10-22 20:15 | disposition home or self-care (01) ==
LOC: ERS 19:08
DX: M54.5 Low back pain (principal); I10 Essential (primary) hypertension; F17.210 Nicotine dependence, cigarettes, uncomplicated; Z87.442 Personal history of urinary calculi; Z86.718 Personal history of other venous thrombosis and embolism; Z71.6 Tobacco abuse counseling; Z79.82 Long term (current) use of aspirin; Z79.899 Other long term (current) drug therapy; V89.2XXA Person injured in unspecified motor-vehicle accident, traffic, initial encounter
CPT/HCPCS: 71046; 72040; 72100; 96372; 99406; J1885

== ENCOUNTER 2019-06-29 16:56 | Emergency (ER) | payer SELFPAY ==
[2019-06-29 17:52] LABS: #Monocytes 1.1 thou/uL (0.11-0.59); #Neutrophils 8.5 thou/uL (1.40-6.50); %Basophils 0.1 % (0.0-1.0); %Eosinophils 0.1 % (0.0-10.0); %Lymphocytes 9.1 % (21.0-51.0); %Monocytes 10.4 % (0.0-10.0); %Neutrophils 80.2 % (42.0-75.0); Hemoglobin 15.5 g/dL (12.0-16.0); Mean Corpuscular HGB CONC 34.7 g/dL (32.0-36.0); Mean Corpuscular Volume 95.2 fL (78.0-98.0); Mean Platelet Volume 7.5 fL (7.4-10.4); Platelet Count 241 thou/uL (130-400); RBC Distribution Width 11.9 % (11.5-14.5); Red Blood Cell (RBC) Count 4.71 mill/uL (4.20-5.40); White Blood Cell (WBC) Count 10.6 thou/uL (4.8-10.8)
[2019-06-29 18:24] LABS: ALT (SGPT) 23 U/L (8-55); AST (SGOT) 28 U/L (5-34); Albumin 4.5 g/dL (3.5-5.0); Alkaline Phosphatase 132 U/L (40-110); Anion Gap 15 mmol/L (10-20); BUN (Urea Nitrogen) 13 mg/dL (9.8-20.1); Bilirubin, Total 0.6 mg/dL (0.2-1.2); Calc. Creatinine Clearance 0 mL/min (70-130); Calcium 9.8 mg/dL (7.8-10.44); Carbon Dioxide 27 mmol/L (22-29); Chloride 97 mmol/L (98-107); Estimated GFR-MDRD 60; Globulin 3.6 g/dL (2.4-3.5); Glucose 128 mg/dL (70-105); Lipase 10 U/L (8-78); Protein, Total 8.1 g/dL (6.0-8.3); Sodium 136 mmol/L (136-145)
[2019-06-29 18:30] LABS: Potassium 2.8 mmol/L (3.5-5.1)
[2019-06-29] MEDS ORDERED: Ondansetron PF 4 MG/2 ML Vial ONE (19:34)
[2019-06-29 20:33] LABS: Bacteria/HPF None Seen HPF (None Seen); Bilirubin Negative (Negative); Blood, Urine 2+ (Negative); Clarity Turbid (Clear); Glucose, Urine (Dipstick) 30 mg/dL (Negative); Leukocyte Negative Leu/uL (Negative); Mucous/LPF Rare LPF (<2+); Nitrite Negative (Negative); Protein, Urine (Dipstick) 100 mg/dL (Neg-Trace); Squamous Epithelial 0-3 HPF (0-3)
[2019-06-29] MEDS ORDERED: Potassium Chloride 20 MEQ TAB ONE (21:10)
== END 2019-06-29 21:36 | disposition home or self-care (01) ==
LOC: ERS 16:56
DX: N39.0 Urinary tract infection, site not specified (principal); R11.2 Nausea with vomiting, unspecified; I10 Essential (primary) hypertension; F32.9 Major depressive disorder, single episode, unspecified; F17.210 Nicotine dependence, cigarettes, uncomplicated; Z87.442 Personal history of urinary calculi
CPT/HCPCS: 36415; 80053; 81003; 81015; 83690; 85025; 96361; 96374; J2405

== ENCOUNTER 2019-09-18 08:08 | Observation (INO) | payer SELFPAY ==
[2019-09-18] MEDS ORDERED: Ondansetron PF 4 MG/2 ML Vial ONE (08:53)
[2019-09-18] MEDS ORDERED: Aspirin Chewable 81 MG TAB ONE (09:02)
[2019-09-18] MEDS ORDERED: Nitroglycerin 2% Ointment 1 INCH/1 GM Packet ONE (09:02)
[2019-09-18 09:04] LABS: #Basophils 0.1 thou/uL (0.0-0.2); #Eosinphils 0.2 thou/uL (0.0-0.7); #Lymphocytes 2.1 thou/uL (1.20-3.40); #Monocytes 0.4 thou/uL (0.11-0.59); %Basophils 1.5 % (0.0-1.0); %Eosinophils 2.5 % (0.0-10.0); %Lymphocytes 30.8 % (21.0-51.0); %Monocytes 6.5 % (0.0-10.0); %Neutrophils 58.8 % (42.0-75.0); Hemoglobin 14.5 g/dL (12.0-16.0); Mean Corpuscular HGB CONC 33.4 g/dL (32.0-36.0); Mean Corpuscular Hemoglobin 32.1 pg (27.0-31.0); Mean Corpuscular Volume 96.2 fL (78.0-98.0); Mean Platelet Volume 7.6 fL (7.4-10.4); Platelet Count 285 thou/uL (130-400); RBC Distribution Width 12.1 % (11.5-14.5); White Blood Cell (WBC) Count 6.7 thou/uL (4.8-10.8)
--- NOTE | 2019-09-18 09:23 | RAD ---
Portable frontal chest radiograph: 09/18/2019 COMPARISON: 12/25/2017 HISTORY: Chest pain FINDINGS: Lungs are clear. Heart and mediastinal contours appear within normal limits. There is ather osclerotic calcification of the aortic arch. IMPRESSION: No acute findings.
[2019-09-18 09:26] LABS: ALT (SGPT) 20 U/L (8-55); AST (SGOT) 27 U/L (5-34); Albumin 4.3 g/dL (3.5-5.0); Alkaline Phosphatase 119 U/L (40-110); Anion Gap 13 mmol/L (10-20); BUN (Urea Nitrogen) 16 mg/dL (9.8-20.1); Bilirubin, Total 0.5 mg/dL (0.2-1.2); Calc. Creatinine Clearance 0 mL/min (70-130); Calcium 9.6 mg/dL (7.8-10.44); Carbon Dioxide 25 mmol/L (22-29); Chloride 105 mmol/L (98-107); Estimated GFR-MDRD 85; Globulin 3.4 g/dL (2.4-3.5); Glucose 105 mg/dL (70-105); Lipase 30 U/L (8-78); Potassium 3.3 mmol/L (3.5-5.1); Protein, Total 7.7 g/dL (6.0-8.3); Sodium 140 mmol/L (136-145)
[2019-09-18] MEDS ORDERED: Potassium Chloride 20 MEQ TAB ONE (10:04)
[2019-09-18] MEDS ORDERED: Iopamidol-370 76% 500 ML 1 ML ONE (11:07)
--- NOTE | 2019-09-18 11:56 | CT ---
CT PULMONARY ANGIOGRAM WITH IV CONTRAST AND 3-D POSTPROCESSING: HISTORY:Chest pain FINDINGS: There is fair contrast opacification of the pulmonary arterial vasculature without filling defects to suggest pulmonary embolism. The thoracic aorta is well opacified without aneurysm or dissection. No pleural or pericardial effusions are seen. No pneumothoraces, focal areas of consolidation or lung nodules are noted. There are degenerative changes in the spine. Upper abdominal tomograms demonstrate changes of cholecystectomy. IMPRESSION: No CT evidence of pulmonary embolism.
--- NOTE | 2019-09-18 11:58 | PDOC.HHP ---
Hospitalist HPI - History of Present Illness Chest pain History of Present Illness: Ms. Daylin Eric is a 59 yo female with a history of smoking and HTN presented to the ED with a c/o CP onset 3 days (09/15/2019). Pt reports the pain starts on the left side of the chest and radiates to the back, up the shoulder, and face to the jaw. These pain spells occurred irregularly. Pt reports tingling sensation going to the shoulder and face. She described the pain as sometimes sharp, and sometimes dull; she also felt pressure in her sternum. She took a tramadol and two ibuprofen to see if she could relieve the pain, but neither helped. No other positioning or rest made her pain better; movement and physical activity made her pain worse. She rated her pain as a 9/10 when she arrived, and she rated her pain as a 3/10 after she had nitroglycerin. Pt reports associated nausea. Pt reports hx of stress test, both exercise and pharmacologic, around one year ago, and both results were normal. She said her symptoms at that time were similar, but the pain then was not as bad as it was now. Pt reports hx of smoking. Pt reports feeling like her "rectum is falling out", reports constipation and needs stimulation for bowel movement. Full code, spoke with patient at bedside. ED Course: Drug Name Dose Ordered Route Status Time potassium chloride oral 40 mEq Oral Given 10:06 09/18/2019 sodium chloride 0.9 % intravenous 1 L IV Fluid Infusion Given 09:26 09/18/2019 aspirin oral 324 mg Oral Given 09:24 09/18/2019 Nitro-Bid transdermal 1 inch Topical Given 09:22 09/18/2019 ondansetron HCl intravenous 4 mg IV Push Given 08:58 09/18/2019 Hospitalist ROS - Review of Systems Constitutional: reports: sweats, weakness (for three days). denies: fever, chills Eyes: denies: pain, vision change, conjunctivae inflammation, eyelid inflammation, redness, other Respiratory: reports: cough, shortness of breath, SOB with excertion, sputum ( clear). denies: hemoptysis, pleuritic pain, wheezing Cardiovascular: reports: chest pain, edema (in feet). denies: palpitations, orthopnea, light headedness Gastrointestinal: reports: constipation. denies: nausea, vomiting, abdominal pain, diarrhea Musculoskeletal: reports: shoulder pain, back pain. denies: hand pain, leg pain , foot pain Neurological: denies: weakness All other systems reviewed; all pertinent +/- noted in HPI/Subj - Medication Medications: 1. Lisinopril 20 mg tablet po once per day 2. Buspirone 10 mg tablet po BID 3. Tramadol 100 mg tablet po every 6 hours PRN 4. Amlodipine 5 mg tablet po once per day Hospitalist History - Past Medical History Source: patient Cardiac: reports: HTN Pulmonary: reports: no pertinent history BREAKER HAND: reports: Migraine Gastrointestinal: reports: Constipation Heme/Onc: reports: no pertinent history Hepatobiliary: reports: no pertinent history Psych: reports: Anxiety Musculoskeletal: reports: Chronic low back pain Rheumatologic: reports: no pertinent history Infectious Disease: reports: no pertinent history Renal/: reports: no pertinent history Endocrine: reports: no pertinent history Dermatology: reports: no pertinent history - Past Surgical History Past Surgical History: reports: Cholecystectomy, Tubal Ligation, Other (2 back surgeries) - Family History Family History: reports: cardiac disorder (her mother at age 78 from heart problems, her father at age 76 from heart problems, her brother, still living, had triple bypass, her other older brother had open heart surgery aprox 8 months ago, her sister has a pacemaker and defib) - Social History Smoking Status: Current every day smoker (has smoked one pack per day since she was 13) Tobacco Type: cigarettes Alcohol: reports: None Drugs: reports: marijuana (aprox 3 times a week for pain and anxiety) Living Situation: With Family (she is a , she lives with her sister) Domestic Violence: Negative Activity level: independent ambulation - Exam General Appearance: NAD, awake alert Eye: PERRL ENT: normocephalic atraumatic Neck: supple, symmetric, no JVD, no carotid bruit Heart: RRR, no murmur, no gallops, no rubs, normal peripheral pulses Respiratory: CTAB, no wheezes, no rales, no ronchi Gastrointestinal: soft, non-tender, non-distended, normal bowel sounds, no palpable masses, no guarding, no rigidity Extremities: no cyanosis Skin: normal turgor Neurological: normal sensation to touch, no weakness, no new deficit Neurological - other findings: reported tingling on L side of face and arm. Musculoskeletal: normal tone, normal strength Psychiatric: normal affect, normal behavior, A&O x 3 Hospitalist Results - Labs Result Diagrams: 09/18/19 08:26 09/18/19 08:53 Lab results: WBC 6.7 thou/uL (4.8-10.8) 09/18/19 08:26 Hgb 14.5 g/dL (12.0-16.0) 09/18/19 08:26 Hct 43.3 % (36.0-47.0) 09/18/19 08:26 MCV 96.2 fL (78.0-98.0) 09/18/19 08:26 Plt Count 285 thou/uL (130-400) 09/18/19 08:26 Neutrophils % 58.8 % (42.0-75.0) 09/18/19 08:26 Sodium 140 mmol/L (136-145) 09/18/19 08:53 Potassium 3.3 mmol/L (3.5-5.1) L 09/18/19 08:53 Chloride 105 mmol/L (98-107) 09/18/19 08:53 Carbon Dioxide 25 mmol/L (22-29) 09/18/19 08:53 BUN 16 mg/dL (9.8-20.1) 09/18/19 08:53 Creatinine 0.70 mg/dL (0.6-1.1) 09/18/19 08:53 Glucose 105 mg/dL (70-105) 09/18/19 08:53 Calcium 9.6 mg/dL (7.8-10.44) 09/18/19 08:53 Total Bilirubin 0.5 mg/dL (0.2-1.2) 09/18/19 08:53 AST 27 U/L (5-34) 09/18/19 08:53 ALT 20 U/L (8-55) 09/18/19 08:53 Alkaline Phosphatase 119 U/L (40-110) H 09/18/19 08:53 Troponin I Less than 0.010 ng/mL (< 0.028) 09/18/19 08:53 Serum Total Protein 7.7 g/dL (6.0-8.3) 09/18/19 08:53 Albumin 4.3 g/dL (3.5-5.0) 09/18/19 08:53 Lipase 30 U/L (8-78) 09/18/19 08:53 - EKG Interpretation EKG: SR - Radiology Interpretation CT scan - chest Status: image reviewed by me (no sign of PE) Additional Comment: No PE Hospitalist H&P A/P - Problem (1) Chest pain Code(s): R07.9 - CHEST PAIN, UNSPECIFIED Status: Acute (2) Hypertension Code(s): I10 - ESSENTIAL (PRIMARY) HYPERTENSION Status: Chronic (3) Hypokalemia Code(s): E87.6 - HYPOKALEMIA Status: Acute (4) Tobacco abuse Code(s): Z72.0 - TOBACCO USE Status: Chronic (5) Anxiety Code(s): F41.9 - ANXIETY DISORDER, UNSPECIFIED Status: Chronic - Plan Plan: Tele monitoring Serial troponins Stress test due to elevated heart score. Also has approx 50 % pretest prob for CAD Cont Amlodipine/Lisinopril Cont other home meds Smoking cessation Replace Potassium
[2019-09-18 12:23] LABS: Troponin I Less than 0.010 ng/mL (< 0.028)
[2019-09-18 12:34] VITALS: BMI 28.0
[2019-09-18] MEDS ORDERED: Acetaminophen 325 MG TAB PO PRN ×2 (12:36→14:19)
[2019-09-18] MEDS ORDERED: Sodium Chloride 0.9% 1,000 ML IV SCH (12:36)
[2019-09-18] MEDS ORDERED: Ondansetron ODT 4 MG TAB SL PRN (12:36)
[2019-09-18] MEDS ORDERED: Ondansetron PF 4 MG/2 ML Vial IVP PRN (12:36)
[2019-09-18] MEDS ORDERED: HYDROcodone/Acetaminophen 5/325 mg Tablet PO PRN (12:36)
[2019-09-18] MEDS: HYDROcodone/Acetaminophen 5/325 mg Tablet PO PRN ×2 (13:04→20:04)
[2019-09-18] MEDS ORDERED: Calcium Carbonate 500 MG ChewTAB PO PRN (14:19)
[2019-09-18] MEDS ORDERED: Ondansetron ODT 4 MG TAB PO PRN (14:19)
[2019-09-18] MEDS ORDERED: traMADol HCl 50 MG TAB PO PRN (14:20)
[2019-09-18] MEDS ORDERED: hydrALAZINE 20 MG/ML VIAL SLOW IVP PRN (14:21)
[2019-09-18 15:19] LABS: Troponin I Less than 0.010 ng/mL (< 0.028)
[2019-09-18] MEDS: Lisinopril 20 MG TAB PO SCH (20:03)
[2019-09-18] MEDS: Famotidine 20 MG TAB PO SCH (20:03)
[2019-09-18] MEDS: busPIRone HCl 10 MG TAB PO SCH (20:03)
[2019-09-19] MEDS: Ondansetron PF 4 MG/2 ML Vial IVP PRN ×2 (05:47→11:56)
[2019-09-19] MEDS: busPIRone HCl 10 MG TAB PO SCH (08:43)
[2019-09-19] MEDS: Famotidine 20 MG TAB PO SCH (08:43)
[2019-09-19] MEDS: Lisinopril 20 MG TAB PO SCH (08:43)
[2019-09-19] MEDS ORDERED: Aspirin 81 mg Enteric Coated Tablet PO SCH (09:00)
[2019-09-19] MEDS ORDERED: FLU VACC QS2019-20(6MOS UP)/PF 60 MCG/0.5 ML SYRINGE IM ONE (09:00)
[2019-09-19] MEDS ORDERED: Amlodipine 5 MG TAB PO SCH (09:00)
[2019-09-19] MEDS ORDERED: Regadenoson 0.4 MG/5 ML SYRINGE ONE (10:52)
--- NOTE | 2019-09-19 13:14 | NM ---
EXAM: Nuclear Medicine Cardiac SPECT with EF and wall motion: HISTORY: Chest pain Protocol: Exam was performed using Lexiscan protocol. The patient is injected with 30.0 millicuries of technetium 99m sestamibi intravenously for stress im ages. The patient is injected with 9.6 millicuries of technetium 99 sestamibi intravenously for resting leo ges. Multiple SPECT images are performed in the short axis, vertical long axis, and horizontal long axis. FINDINGS: No scan evidence for infarct or ischemia. TID:1.01 LHR:0.35 EDV:89 mL EF:62% Wall motion:Normal IMPRESSION: Unremarkable cardiac SPECT with EF and wall motion
[2019-09-19 16:16] VITALS: BP 136/93; TEMP 98.2
--- NOTE | 2019-09-19 16:22 | PDOC.HOSPP ---
- Subjective Encounter Date: 09/19/19 Encounter Time: 16:20 Subjective: Ms. Eric was seen today in follow-up of chest pain. She does not have any complaints today. - Objective Vital Signs & Weight: Vital Signs (12 hours) Temp Pulse Resp BP BP Pulse Ox 09/19/19 15:51 98.2 F 80 18 136/93 H 96 09/19/19 07:26 98.6 F 68 16 138/71 98 09/19/19 05:00 98.8 F 73 16 132/59 L 97 09/19/19 04:37 97 Weight Weight 178 lb 11.2 oz I&O: 09/18/19 09/19/19 09/20/19 06:59 06:59 06:59 Intake Total 890 Output Total 1050 Balance -160 Result Diagrams: 09/18/19 08:26 09/18/19 08:53 Hospitalist ROS - Medication Medications: Active Medications Generic Name Dose Route Start Last Admin Trade Name Freq PRN Reason Stop Dose Admin Amlodipine Besylate 5 mg 09/19/19 09:00 09/19/19 08:42 Norvasc PO Not Given DAILY [facility] Aspirin 81 mg 09/19/19 09:00 09/19/19 08:42 Ecotrin PO Not Given DAILY [facility] Buspirone HCl 30 mg 09/18/19 21:00 09/19/19 08:43 Buspar PO Not Given BID FRANCISCO JAVIER Famotidine 20 mg 09/18/19 21:00 09/19/19 08:43 Pepcid PO Not Given BID FRANCISCO JAVIER Lisinopril 20 mg 09/18/19 21:00 09/19/19 08:43 Zestril PO Not Given BID FRANCISCO JAVIER Ondansetron HCl 4 mg 09/18/19 14:19 09/19/19 11:56 Zofran IVP 4 mg Q6H PRN Administration Nausea/Vomiting Tramadol HCl 50 mg 09/18/19 14:20 09/19/19 14:02 Ultram PO 50 mg Q6H PRN Administration Pain - Exam Eye: PERRL Heart: RRR, no murmur, no gallops, no rubs Respiratory: CTAB, no wheezes, no rales, no ronchi, normal chest expansion Gastrointestinal: soft, non-tender, non-distended, normal bowel sounds Extremities: no cyanosis, no edema Hosp A/P (1) Chest pain Code(s): R07.9 - CHEST PAIN, UNSPECIFIED Status: Acute (2) Hypertension Code(s): I10 - ESSENTIAL (PRIMARY) HYPERTENSION Status: Chronic (3) Tobacco abuse Code(s): Z72.0 - TOBACCO USE Status: Chronic - Plan * Chest pain- Probable non-cardiac * Stable for discharge home
--- NOTE | 2019-09-20 02:39 | DIS ---
DATE OF ADMISSION: 09/18/2019 DATE OF DISCHARGE: 09/19/2019 PRIMARY CARE PHYSICIAN: Jabier Pradhan. DISCHARGE DISPOSITION: Home. DISCHARGE DIAGNOSES: 1. Chest pain probable noncardiac. 2. Hypertension. 3. Tobacco abuse. DISCHARGE MEDICATIONS: Include; 1. Amlodipine 5 mg daily. 2. Buspirone 30 mg twice daily. 3. Lisinopril 20 mg twice a day. 4. Ultram 50 mg q.6 as needed. 5. Aspirin 81 mg daily. PROCEDURES DONE DURING THE HOSPITAL STAY: The patient had a CT angiogram of the chest, which was negative for PE. The patient also had a nuclear stress test in which there was no evidence of any wall motion abnormality. No ischemia or infarct. HOSPITAL COURSE: Ms. Eric is a pleasant 59-year-old female who was admitted to the hospital with complaints of chest pain. The description of which was atypical. She had a CT angiogram in the ER, which was negative for PE, negative nuclear stress test. The following day, her symptoms were resolved. Brief tobacco cessation counseling was done and the patient is subsequently being discharged home in stable condition on 09/19/2019 to follow up with her primary care physician in 1 week. Job ID: [id number]
== END 2019-09-19 16:48 | disposition home or self-care (01) ==
LOC: ERS 08:08 → 2SW 12:27
PROVIDERS: ADMIT Internal Medicine; ATTEND Internal Medicine
DX: R07.89 Other chest pain (principal); F17.210 Nicotine dependence, cigarettes, uncomplicated; F41.9 Anxiety disorder, unspecified; Z79.899 Other long term (current) drug therapy
CPT/HCPCS: 36415; 71045; 71275; 78452; 80053; 83690; 83735; 84484; 85025; 85379; 93005; 93017; 94760; 96361; 96374; 96376; A9500; G0378; J2405; J2785; Q9967

== ENCOUNTER 2021-05-02 15:48 | Emergency (ER) | payer SELFPAY | END 2021-05-02 18:02 | disposition left against medical advice (07) | LOC: ERS 15:48 | DX: Z53.21 Procedure and treatment not carried out due to patient leaving prior to being seen by health care provider (principal) | CPT/HCPCS: 94760 ==

== ENCOUNTER 2021-06-15 05:35 | Emergency (ER) | payer SELFPAY ==
[2021-06-15 06:09] LABS: Bacteria/HPF None Seen HPF (None Seen); Bilirubin Negative (Negative); Blood, Urine Negative (Negative); Clarity Turbid (Clear); Glucose, Urine (Dipstick) Normal (Negative); Ketone, Urine Negative (Negative); Leukocyte 25 Leu/uL (Negative); Nitrite Negative (Negative); Protein, Urine (Dipstick) 10 mg/dL (Neg-Trace); RBC/HPF 0-3 HPF (0-3); Specific Gravity, Urine 1.018 (1.002-1.036); Squamous Epithelial 21-50 HPF (0-3); Urobilinogen 3 mg/dL (Less than 2); pH, Urine 6.5 (5.0-9.0)
[2021-06-15 06:30] LABS: #Eosinphils 0.2 thou/uL (0.0-0.7); #Lymphocytes 1.3 thou/uL (1.20-3.40); #Monocytes 0.6 thou/uL (0.11-0.59); #Neutrophils 3.2 thou/uL (1.40-6.50); %Basophils 0.8 % (0.0-1.0); %Eosinophils 4.3 % (0.0-10.0); %Lymphocytes 24.2 % (21.0-51.0); %Monocytes 11.7 % (0.0-10.0); Hemoglobin 9.3 g/dL (12.0-16.0); Mean Corpuscular HGB CONC 33.2 g/dL (32.0-36.0); Mean Corpuscular Hemoglobin 30.7 pg (27.0-31.0); Mean Corpuscular Volume 92.6 fL (78.0-98.0); Platelet Count 339 thou/uL (130-400); RBC Distribution Width 13.9 % (11.5-14.5); Red Blood Cell (RBC) Count 3.02 mill/uL (4.20-5.40); White Blood Cell (WBC) Count 5.4 thou/uL (4.8-10.8)
[2021-06-15 06:54] LABS: ALT (SGPT) 13 U/L (8-55); AST (SGOT) 20 U/L (5-34); Albumin 3.4 g/dL (3.4-4.8); Alkaline Phosphatase 99 U/L (40-110); Anion Gap 10 mmol/L (10-20); BUN (Urea Nitrogen) 13 mg/dL (9.8-20.1); Bilirubin, Total 0.3 mg/dL (0.2-1.2); Calc. Creatinine Clearance 0 mL/min (70-130); Carbon Dioxide 31 mmol/L (23-31); Chloride 103 mmol/L (98-107); Globulin 2.7 g/dL (2.4-3.5); Glucose 100 mg/dL (80-115); Lipase 28 U/L (8-78); Potassium 3.4 mmol/L (3.5-5.1); Protein, Total 6.1 g/dL (5.8-8.1); Sodium 141 mmol/L (136-145)
[2021-06-15] MEDS ORDERED: Cyclobenzaprine 10 MG TAB ONE (07:01)
== END 2021-06-15 07:05 | disposition home or self-care (01) ==
LOC: ERS 05:35
DX: S16.1XXA Strain of muscle, fascia and tendon at neck level, initial encounter (principal); D64.9 Anemia, unspecified; R10.32 Left lower quadrant pain; W18.2XXA Fall in (into) shower or empty bathtub, initial encounter; I10 Essential (primary) hypertension; J44.9 Chronic obstructive pulmonary disease, unspecified; F17.210 Nicotine dependence, cigarettes, uncomplicated
CPT/HCPCS: 36415; 80053; 81003; 81015; 83690; 85025; 93005

== ENCOUNTER 2021-09-13 16:07 | Emergency (ER) | payer SELFPAY ==
[2021-09-13] MEDS ORDERED: Morphine 4 MG/ML VIAL ONE (16:56)
[2021-09-13] MEDS ORDERED: Ondansetron PF 4 MG/2 ML Vial ONE (16:56)
[2021-09-13 17:16] LABS: #Eosinphils 0.1 thou/uL (0.0-0.7); #Lymphocytes 1.4 thou/uL (1.20-3.40); #Monocytes 0.7 thou/uL (0.11-0.59); %Basophils 0.6 % (0.0-1.0); %Eosinophils 2.2 % (0.0-10.0); %Lymphocytes 22.2 % (21.0-51.0); %Monocytes 10.7 % (0.0-10.0); %Neutrophils 64.3 % (42.0-75.0); Hemoglobin 8.3 g/dL (12.0-16.0); Mean Corpuscular HGB CONC 30.1 g/dL (32.0-36.0); Mean Corpuscular Hemoglobin 25.5 pg (27.0-31.0); Mean Corpuscular Volume 84.7 fL (78.0-98.0); Mean Platelet Volume 7.7 fL (7.4-10.4); Platelet Count 295 thou/uL (130-400); RBC Distribution Width 15.6 % (11.5-14.5); Red Blood Cell (RBC) Count 3.26 mill/uL (4.20-5.40); White Blood Cell (WBC) Count 6.2 thou/uL (4.8-10.8)
[2021-09-13 17:33] LABS: ALT (SGPT) 14 U/L (8-55); AST (SGOT) 24 U/L (5-34); Albumin 3.7 g/dL (3.4-4.8); Alkaline Phosphatase 82 U/L (40-110); Anion Gap 11 mmol/L (10-20); BUN (Urea Nitrogen) 11 mg/dL (9.8-20.1); Bilirubin, Total 0.3 mg/dL (0.2-1.2); Calc. Creatinine Clearance 0 mL/min (70-130); Calcium 9.2 mg/dL (7.8-10.44); Carbon Dioxide 30 mmol/L (23-31); Chloride 106 mmol/L (98-107); Globulin 2.9 g/dL (2.4-3.5); Glucose 115 mg/dL (80-115); Lipase 16 U/L (8-78); Potassium 3.2 mmol/L (3.5-5.1); Protein, Total 6.6 g/dL (5.8-8.1); Sodium 144 mmol/L (136-145)
[2021-09-13 17:36] LABS: Bacteria/HPF 4+ HPF (None Seen); Bilirubin Negative (Negative); Blood, Urine 3+ (Negative); Calcium Oxalate Crystals 4+ HPF (None Seen); Clarity Turbid (Clear); Glucose, Urine (Dipstick) Normal (Negative); Ketone, Urine Negative (Negative); Leukocyte Negative Leu/uL (Negative); Nitrite Negative (Negative); Protein, Urine (Dipstick) 30 mg/dL (Neg-Trace); RBC/HPF Greater than 50 HPF (0-3); Specific Gravity, Urine 1.024 (1.002-1.036); pH, Urine 5.5 (5.0-9.0)
[2021-09-13] MEDS ORDERED: Ketorolac Tromethamine 30 MG/ML VIAL ONE (18:49)
[2021-09-13] MEDS ORDERED: Potassium Chloride 20 MEQ/100 ML PREMIX BAG ONE (18:49)
[2021-09-13] MEDS ORDERED: Potassium Chloride 20 MEQ TAB ONE (18:50)
== END 2021-09-13 19:05 | disposition home or self-care (01) ==
LOC: ERS 16:07
DX: N13.2 Hydronephrosis with renal and ureteral calculous obstruction (principal); I10 Essential (primary) hypertension; J44.9 Chronic obstructive pulmonary disease, unspecified; F17.210 Nicotine dependence, cigarettes, uncomplicated
CPT/HCPCS: 74176; 80053; 81003; 81015; 83690; 85025; 96374; 96375; J1885; J2270; J2405; J3480

== ENCOUNTER 2022-02-28 04:45 | Emergency (ER) | payer SELFPAY ==
[2022-02-28] MEDS ORDERED: Ketorolac Tromethamine 30 MG/ML VIAL ONE (05:17)
[2022-02-28] MEDS ORDERED: Ondansetron PF 4 MG/2 ML Vial ONE (05:17)
[2022-02-28 07:38] LABS: Bacteria/HPF None Seen HPF (None Seen); Bilirubin Negative (Negative); Blood, Urine Negative (Negative); Clarity Clear (Clear); Glucose, Urine (Dipstick) Normal (Negative); Ketone, Urine Negative (Negative); Leukocyte Negative Leu/uL (Negative); Nitrite Negative (Negative); Protein, Urine (Dipstick) 20 mg/dL (Neg-Trace); RBC/HPF 0-3 HPF (0-3); Specific Gravity, Urine 1.031 (1.002-1.036); Squamous Epithelial 0-3 HPF (0-3); WBC/HPF 0-3 HPF (0-3); pH, Urine 5.5 (5.0-9.0)
[2022-02-28 07:52] LABS: ALT (SGPT) 17 U/L (8-55); AST (SGOT) 25 U/L (5-34); Albumin 3.7 g/dL (3.4-4.8); Alkaline Phosphatase 98 U/L (40-110); Anion Gap 11 mmol/L (10-20); BUN (Urea Nitrogen) 21 mg/dL (9.8-20.1); Bilirubin, Total 0.4 mg/dL (0.2-1.2); Calc. Creatinine Clearance 0 mL/min (70-130); Calcium 9.3 mg/dL (7.8-10.44); Carbon Dioxide 29 mmol/L (23-31); Chloride 104 mmol/L (98-107); Estimated GFR 98; Glucose 106 mg/dL (80-115); Potassium 3.5 mmol/L (3.5-5.1); Protein, Total 6.7 g/dL (5.8-8.1); Sodium 140 mmol/L (136-145)
[2022-02-28 10:52] LABS: #Basophils 0.1 thou/uL (0.0-0.2); #Eosinphils 0.2 thou/uL (0.0-0.7); #Lymphocytes 2.4 thou/uL (1.20-3.40); #Monocytes 0.6 thou/uL (0.11-0.59); #Neutrophils 3.4 thou/uL (1.40-6.50); %Basophils 1.1 % (0.0-1.0); %Eosinophils 3.2 % (0.0-10.0); %Lymphocytes 35.6 % (21.0-51.0); %Monocytes 9.3 % (0.0-10.0); %Neutrophils 50.8 % (42.0-75.0); Hemoglobin 12.8 g/dL (12.0-16.0); Mean Corpuscular HGB CONC 33.3 g/dL (32.0-36.0); Mean Corpuscular Hemoglobin 33.5 pg (27.0-31.0); Mean Platelet Volume 7.7 fL (7.4-10.4); Platelet Count 263 thou/uL (130-400); RBC Distribution Width 12.7 % (11.5-14.5); Red Blood Cell (RBC) Count 3.84 mill/uL (4.20-5.40); White Blood Cell (WBC) Count 6.8 thou/uL (4.8-10.8)
== END 2022-02-28 09:59 | disposition home or self-care (01) ==
LOC: ERS 04:45
DX: R10.9 Unspecified abdominal pain (principal); I10 Essential (primary) hypertension; F17.210 Nicotine dependence, cigarettes, uncomplicated; Z87.442 Personal history of urinary calculi; Z79.82 Long term (current) use of aspirin; Z79.899 Other long term (current) drug therapy
CPT/HCPCS: 74176; 80053; 81001; 85025; 87086; 96374; 96375; J1885; J2405

== ENCOUNTER 2022-06-20 21:07 | Emergency (ER) | payer SELFPAY ==
[2022-06-20] MEDS ORDERED: Acetaminophen 500 MG TAB ONE (22:25)
[2022-06-20] MEDS ORDERED: Ketorolac Tromethamine 30 MG/ML VIAL ONE (22:25)
== END 2022-06-20 22:45 | disposition home or self-care (01) ==
LOC: ERS 21:07
DX: M54.41 Lumbago with sciatica, right side (principal)
CPT/HCPCS: 96372; 99282; J1885

== ENCOUNTER 2022-08-12 06:46 | Emergency (ER) | payer SELFPAY ==
[2022-08-12] MEDS ORDERED: Ketorolac Tromethamine 30 MG/ML VIAL ONE (08:28)
[2022-08-12 08:33] LABS: #Basophils 0.1 thou/uL (0.0-0.2); #Eosinphils 0.3 thou/uL (0.0-0.7); #Lymphocytes 1.6 thou/uL (1.20-3.40); #Monocytes 0.6 thou/uL (0.11-0.59); #Neutrophils 3.4 thou/uL (1.40-6.50); %Basophils 0.9 % (0.0-1.0); %Eosinophils 4.5 % (0.0-10.0); %Lymphocytes 26.7 % (21.0-51.0); %Monocytes 9.8 % (0.0-10.0); %Neutrophils 58.1 % (42.0-75.0); Hemoglobin 13.2 g/dL (12.0-16.0); Mean Corpuscular HGB CONC 33.9 g/dL (32.0-36.0); Mean Corpuscular Hemoglobin 33.6 pg (27.0-31.0); Mean Corpuscular Volume 99.2 fl (78.0-98.0); Mean Platelet Volume 7.3 fL (7.4-10.4); Platelet Count 288 10x3/uL (130-400); RBC Distribution Width 11.8 % (11.5-14.5); Red Blood Cell (RBC) Count 3.92 mill/uL (4.20-5.40); White Blood Cell (WBC) Count 5.9 10x3/uL (4.8-10.8)
[2022-08-12 08:43] LABS: SARS-CoV-2 NAA Rapid Test Not Detected (NotDetected)
[2022-08-12 08:53] LABS: ALT (SGPT) 18 U/L (8-55); AST (SGOT) 25 U/L (5-34); Albumin 3.9 g/dL (3.4-4.8); Alkaline Phosphatase 103 U/L (40-110); Anion Gap 12 mmol/L (10-20); BUN (Urea Nitrogen) 11 mg/dL (9.8-20.1); Bilirubin, Total 0.6 mg/dL (0.2-1.2); Calc. Creatinine Clearance 0 mL/min (70-130); Calcium 9.4 mg/dL (7.8-10.44); Carbon Dioxide 28 mmol/L (23-31); Chloride 102 mmol/L (98-107); Estimated GFR 99; Glucose 92 mg/dL (80-115); Lipase 24 U/L (8-78); Potassium 3.6 mmol/L (3.5-5.1); Protein, Total 6.9 g/dL (5.8-8.1); Sodium 138 mmol/L (136-145)
== END 2022-08-12 09:50 | disposition home or self-care (01) ==
LOC: ERS 06:46
DX: J06.9 Acute upper respiratory infection, unspecified (principal); J44.1 Chronic obstructive pulmonary disease with (acute) exacerbation; F17.210 Nicotine dependence, cigarettes, uncomplicated; I10 Essential (primary) hypertension; Z20.822 Contact with and (suspected) exposure to COVID-19
CPT/HCPCS: 71045; 80053; 83690; 85025; 87804; 96374; J1885; U0002

== ENCOUNTER 2023-07-31 09:12 | Inpatient (IN) | payer SELFPAY ==
[~2023-07-31 09:12] MED LIST: Iopamidol-370 76% 500 ML MDV (1 ML CHARGE) ONE
[2023-07-31 10:19] LABS: #Eosinphils 0.2 thou/uL (0.0-0.7); #Monocytes 0.7 thou/uL (0.11-0.59); #Neutrophils 3.3 thou/uL (1.40-6.50); %Basophils 0.5 % (0.0-1.0); %Lymphocytes 25.3 % (21.0-51.0); %Monocytes 11.7 % (0.0-10.0); %Neutrophils 58.3 % (42.0-75.0); Hematocrit 40.6 % (36.0-47.0); Hemoglobin 13.4 g/dL (12.0-16.0); Mean Corpuscular Hemoglobin 31.5 pg (27.0-31.0); Mean Corpuscular Volume 95.5 fl (78.0-98.0); Mean Platelet Volume 9.3 fL (7.4-10.4); Platelet Count 359 10x3/uL (130-400); RBC Distribution Width 12.3 % (11.5-14.5); Red Blood Cell (RBC) Count 4.25 mill/uL (4.20-5.40); White Blood Cell (WBC) Count 5.7 10x3/uL (4.8-10.8)
[2023-07-31 10:47] LABS: Troponin I Less than 0.010 ng/mL (< 0.028)
[2023-07-31 10:52] LABS: ALT (SGPT) 12 U/L (8-55); AST (SGOT) 24 U/L (5-34); Albumin 3.7 g/dL (3.4-4.8); Alkaline Phosphatase 104 U/L (40-110); Anion Gap 9 mmol/L (10-20); BUN (Urea Nitrogen) 17 mg/dL (9.8-20.1); Bilirubin, Total 0.3 mg/dL (0.2-1.2); Calc. Creatinine Clearance 0 mL/min (70-130); Calcium 9.5 mg/dL (7.8-10.44); Carbon Dioxide 34 mmol/L (23-31); Chloride 100 mmol/L (98-107); Estimated GFR 72; Globulin 3.5 g/dL (2.4-3.5); Glucose 97 mg/dL (80-115); Potassium 3.1 mmol/L (3.5-5.1); Protein, Total 7.2 g/dL (5.8-8.1); Sodium 140 mmol/L (136-145)
[2023-07-31 11:40] LABS: SARS-CoV-2 NAA Rapid Test Not Detected (NotDetected)
[2023-07-31] MEDS ORDERED: Potassium Chloride 20 MEQ TAB ONE (11:42)
[2023-07-31] MEDS ORDERED: Meclizine HCl 25 MG TAB ONE (11:42)
[2023-07-31] MEDS ORDERED: Morphine 4 MG/ML VIAL ONE (11:42)
[2023-07-31] MEDS ORDERED: Ketorolac Tromethamine 30 MG (1 mL) VIAL ONE ×3 (11:42→15:38)
[2023-07-31] MEDS ORDERED: Acetaminophen 325 MG TAB PO PRN (12:14)
[2023-07-31] MEDS ORDERED: Guaifenesin DM 100-10/5 ML UDCUP PO PRN (12:14)
[2023-07-31] MEDS ORDERED: Lorazepam 1 MG TAB PO PRN (12:52)
[2023-07-31] MEDS ORDERED: LORazepam 2 MG/ML SYR.(CARPUJECT) ONE (13:42)
[2023-07-31] MEDS ORDERED: Nicotine 14 MG PATCH ONE (15:20)
[2023-07-31] MEDS ORDERED: Ondansetron PF 4 MG/2 ML Vial ONE (15:39)
[2023-07-31] MEDS: Nicotine 14 MG PATCH TD SCH (15:52)
[2023-07-31] MEDS: Ketorolac Tromethamine 30 MG (1 mL) VIAL IVP PRN ×2 (15:53→22:02)
[2023-07-31] MEDS ORDERED: Cyclobenzaprine 10 MG TAB PO PRN (18:08)
[2023-07-31] MEDS: Famotidine 20 MG TAB PO SCH (20:14)
[2023-07-31] MEDS: Gabapentin 300 MG CAP PO SCH (20:14)
[2023-07-31] MEDS ORDERED: Rosuvastatin 20 MG TAB PO SCH ×2 (21:00)
[2023-07-31 22:57] VITALS: BMI 25.6
[2023-08-01] MEDS: Ketorolac Tromethamine 30 MG (1 mL) VIAL IVP PRN ×3 (04:02→16:28)
[2023-08-01 06:09] LABS: Anion Gap 7 mmol/L (10-20); BUN (Urea Nitrogen) 15 mg/dL (9.8-20.1); Calc. Creatinine Clearance 95 mL/min (70-130); Calcium 8.4 mg/dL (7.8-10.44); Carbon Dioxide 32 mmol/L (23-31); Cardiac Risk 2.7 (Less than 4.5); Chloride 104 mmol/L (98-107); Cholesterol 95 mg/dl (< 200 Desired); Estimated GFR 97; Glucose 125 mg/dL (80-115); HDL Cholesterol 35 mg/dL (>60 Neg Risk); LDL Cholesterol, Calculated 45 mg/dL; Potassium 3.5 mmol/L (3.5-5.1); Sodium 139 mmol/L (136-145); Triglycerides 74 mg/dL (Less than 150)
[2023-08-01] MEDS: Famotidine 20 MG TAB PO SCH (08:49)
[2023-08-01] MEDS: Gabapentin 300 MG CAP PO SCH ×2 (08:49→15:16)
[2023-08-01] MEDS ORDERED: Escitalopram Oxalate 10 mg Tablet PO SCH (09:00)
[2023-08-01] MEDS ORDERED: Aspirin 81 mg Enteric Coated Tablet PO SCH (09:00)
[2023-08-01] MEDS ORDERED: Clopidogrel Bisulfate 75 MG TAB PO SCH (09:00)
[2023-08-01] MEDS ORDERED: Amlodipine 5 mg/Benazepril 10 mg CAP PO SCH (09:00)
[2023-08-01] MEDS ORDERED: Enoxaparin 30 MG (0.3 mL) SYRINGE SC SCH (09:00)
[2023-08-01] MEDS: Nicotine 14 MG PATCH TD SCH (12:06)
[2023-08-01 15:51] VITALS: BP 117/60; TEMP 98.9
[2023-08-01] MEDS ORDERED: traMADol HCl 50 MG TAB PO SCH (16:45)
[2023-08-01] MEDS ORDERED: FLU VACC QS2023-24(6MOS UP)/PF 60 MCG/0.5 ML SYRINGE IM ONE (17:36)
[2023-08-04] MEDS ORDERED: FLU VACC QS2023-24(6MOS UP)/PF 60 MCG/0.5 ML SYRINGE IM ONE (09:00)
== END 2023-08-01 17:50 | disposition home or self-care (01) | DRG 552 ==
LOC: ERS 09:12 → ERHOLD 11:59 → 2SE 19:06 → OBSVTOIN 08-01 13:27
PROVIDERS: ADMIT Internal Medicine; ATTEND Nurse Practitioner Acute Care
DX: M48.02 Spinal stenosis, cervical region (principal); I10 Essential (primary) hypertension; E78.5 Hyperlipidemia, unspecified; F17.210 Nicotine dependence, cigarettes, uncomplicated; G89.29 Other chronic pain; M54.50 Low back pain, unspecified; K21.9 Gastro-esophageal reflux disease without esophagitis; F41.9 Anxiety disorder, unspecified; Z79.82 Long term (current) use of aspirin; Z79.899 Other long term (current) drug therapy; Z98.51 Tubal ligation status; Z98.890 Other specified postprocedural states; Z82.49 Family history of ischemic heart disease and other diseases of the circulatory system; Z11.52 Encounter for screening for COVID-19; D50.9 Iron deficiency anemia, unspecified; F32.A Depression, unspecified; R91.1 Solitary pulmonary nodule
CPT/HCPCS: 36415; 70450; 70496; 70498; 70551; 72141; 80048; 80053; 80061; 84484; 85025; 90471; 90686; 93005; G0008; J1650; J1885; J2060; J2270; J2405; Q9967

== ENCOUNTER 2024-02-16 18:46 | Emergency (ER) | payer OTHER | END 2024-02-16 19:33 | disposition home or self-care (01) | LOC: ERS 18:46 | DX: L03.213 Periorbital cellulitis (principal); R11.0 Nausea; I10 Essential (primary) hypertension; F17.210 Nicotine dependence, cigarettes, uncomplicated | CPT/HCPCS: 99282 ==

== ENCOUNTER 2024-05-30 10:09 | Emergency (ER) | payer MEDICARE, OTHER ==
[2024-05-30 11:28] LABS: Bacteria/HPF None Seen HPF (None Seen); Bilirubin Negative (Negative); Blood, Urine Negative (Negative); CAUTI Indications for Culture Acute Hematuria; Clarity Clear (Clear); Glucose, Urine (Dipstick) Normal (Negative); Ketone, Urine Negative (Negative); Leukocyte Negative Leu/uL (Negative); Nitrite Negative (Negative); Protein, Urine (Dipstick) Negative (Neg-Trace); RBC/HPF 0-3 HPF (0-3); Specific Gravity, Urine 1.017 (1.002-1.036); Squamous Epithelial 0-3 HPF (0-3); WBC/HPF 0-3 HPF (0-3); pH, Urine 6.5 (5.0-9.0)
[2024-05-30] MEDS ORDERED: Ketorolac Tromethamine 30 MG (1 mL) VIAL ONE (11:37)
[2024-05-30] MEDS ORDERED: Morphine 4 MG/ML VIAL ONE (11:38)
[2024-05-30 11:46] LABS: #Basophils 0.04 10x3/uL (0.0-0.2); %Basophils 0.8 % (0.0-1.0); %Eosinophils 4.1 % (0.0-10.0); %Lymphocytes 28.6 % (21.0-51.0); %Monocytes 10.5 % (0.0-10.0); %Neutrophils 55.6 % (42.0-75.0); Hematocrit 39.2 % (36.0-47.0); Hemoglobin 13.2 g/dL (12.0-16.0); Mean Corpuscular HGB CONC 33.7 g/dL (32.0-36.0); Mean Corpuscular Hemoglobin 32.2 pg (27.0-31.0); Mean Corpuscular Volume 95.6 fL (78.0-98.0); Mean Platelet Volume 10.6 fL (7.4-10.4); Platelet Count 201 10x3/uL (130-400); RBC Distribution Width 12.7 % (11.5-14.5)
[2024-05-30 11:51] LABS: Urine Culture Reflex No No
[2024-05-30 12:11] LABS: ALT (SGPT) 16 U/L (8-55); AST (SGOT) 21 U/L (5-34); Albumin 3.6 g/dL (3.4-4.8); Alkaline Phosphatase 93 U/L (40-110); Anion Gap 13 mmol/L (10-20); BUN (Urea Nitrogen) 12 mg/dL (9.8-20.1); Bilirubin, Total 0.3 mg/dL (0.2-1.2); Calc. Creatinine Clearance 0 mL/min (70-130); Carbon Dioxide 24 mmol/L (23-31); Chloride 106 mmol/L (98-107); Estimated GFR 75; Globulin 3.2 g/dL (2.4-3.5); Glucose 105 mg/dL (80-115); Lipase 21 U/L (8-78); Potassium 3.7 mmol/L (3.5-5.1); Protein, Total 6.8 g/dL (5.8-8.1); Sodium 139 mmol/L (136-145)
[2024-05-30] MEDS ORDERED: Iopamidol-370 76% 500 ML MDV (1 ML CHARGE) ONE (15:38)
== END 2024-05-30 13:31 | disposition home or self-care (01) ==
LOC: ERS 10:09
DX: R10.31 Right lower quadrant pain (principal); M54.50 Low back pain, unspecified; I10 Essential (primary) hypertension; F17.210 Nicotine dependence, cigarettes, uncomplicated; Z79.82 Long term (current) use of aspirin
CPT/HCPCS: 74177; 80053; 81001; 83690; 85025; 93005; 96374; 96375; 99284; J1885; J2272; Q9967; 36415

== ENCOUNTER 2025-03-09 15:47 | Emergency (ER) | payer OTHER ==
[2025-03-09 17:03] LABS: Bacteria/HPF None Seen HPF (None Seen); CAUTI Indications for Culture Dysuria,urgency,freq; Glucose, Urine (Dipstick) Normal (Negative); Leukocyte Negative Leu/uL (Negative); Protein, Urine (Dipstick) Negative (Neg-Trace); RBC/HPF 0-3 HPF (0-3); Specific Gravity, Urine 1.016 (1.002-1.036); WBC/HPF 0-3 HPF (0-3)
[2025-03-09 17:06] LABS: Urine Culture Reflex No No
[2025-03-09 17:07] LABS: #Basophils 0.05 10x3/uL (0.0-0.2); #Eosinophils 0.25 10x3/uL (0.0-0.7); #Monocytes 0.66 10x3/uL (0.11-0.59); #Neutrophils 3.70 10x3/uL (1.40-6.50); %Basophils 0.8 % (0.0-1.0); %Eosinophils 4.1 % (0.0-10.0); %Lymphocytes 23.9 % (21.0-51.0); %Monocytes 10.7 % (0.0-10.0); %Neutrophils 60.3 % (42.0-75.0); Hematocrit 35.8 % (36.0-47.0); Hemoglobin 11.6 g/dL (12.0-16.0); Mean Corpuscular Hemoglobin 30.9 pg (27.0-31.0); Mean Corpuscular Volume 95.5 fL (78.0-98.0); Platelet Count 241 10x3/uL (130-400); Red Blood Cell (RBC) Count 3.75 mill/uL (4.20-5.40); White Blood Cell (WBC) Count 6.14 10x3/uL (4.8-10.8)
[2025-03-09 17:22] LABS: INR-International Normal Ratio 0.9; Prothrombin Time 12.7 sec (12.0-14.7)
[2025-03-09 17:23] LABS: PTT 29.1 sec (22.9-36.1)
[2025-03-09 17:42] LABS: Anion Gap 13 mmol/L (10-20); BUN (Urea Nitrogen) 12 mg/dL (9.8-20.1); Calc. Creatinine Clearance 0 mL/min (70-130); Carbon Dioxide 27 mmol/L (23-31); Chloride 105 mmol/L (98-107); Potassium 3.1 mmol/L (3.5-5.1); Sodium 142 mmol/L (136-145)
[2025-03-09 17:43] LABS: ALT (SGPT) 13 U/L (Less than 34); AST (SGOT) 24 U/L (11-34); Albumin 3.9 g/dL (3.1-4.5); Alkaline Phosphatase 100 U/L (40-110); Bilirubin, Total 0.4 mg/dL (0.3-1.2); Calcium 8.9 mg/dL (7.8-10.44); Globulin 3.0 g/dL (2.4-3.5); Glucose 104 mg/dL (80-115); Lipase 19 U/L (8-78)
[2025-03-09] MEDS ORDERED: Potassium Bicarbonate/Cit Ac 20 MEQ TAB ONE ×2 (18:12→18:13)
[2025-03-09 18:37] LABS: Magnesium 2.0 mg/dL (1.6-2.6)
[2025-03-09] MEDS ORDERED: Ondansetron PF 4 MG/2 ML Vial ONE (19:16)
== END 2025-03-09 19:14 | disposition home or self-care (01) ==
LOC: ERS 15:47
DX: R10.9 Unspecified abdominal pain (principal); K64.9 Unspecified hemorrhoids; M79.10 Myalgia, unspecified site; I10 Essential (primary) hypertension; F17.210 Nicotine dependence, cigarettes, uncomplicated; W19.XXXA Unspecified fall, initial encounter
CPT/HCPCS: 74176; 80053; 81001; 83690; 83735; 85025; 85610; 85730; J2270; J2405; J2919; 96374; 96375